=== PATIENT | male | born 1970 | race Caucasian/White ===

== ENCOUNTER 2018-11-27 19:57 | Emergency (ER) | payer OTHER ==
[2018-11-27] MEDS ORDERED: IBUPROFEN 600 MG TABLET PO ONE (20:41)
[2018-11-27] MEDS ORDERED: LIDOCAINE 5% (700 MG) TRANSDERMAL ADH..PATCH TP ONE (20:41)
[2018-11-27] MEDS ORDERED: ACETAMINOPHEN 325 MG TABLET PO ONE (20:41)
--- NOTE | 2018-11-27 21:34 | ER Document Report ---
HPI - HPI Time Seen by Provider: 11/27/18 20:24 Pain Level: 3 Context: Patient is a 48-year-old male who presents emergency department with a chief complaint of right sided back pain. He states that he sneezed earlier today and felt like he pulled a muscle in his side or in his back. States it is a sharp pain. He states that he does not want to sit down, because he states that he will have to get back up, and it hurts for him to go from a sitting to standing position. He states that when he takes a deep breath in, it hurts. He has not taken any ibuprofen or Tylenol to help with his pain. His past medical history includes hypertension, enlarged prostate, and GERD. He states that he thinks his medications are not making him feel any better. - CONSTITUTIONAL Constitutional: DENIES: Fever, Chills - EENT EENT: DENIES: Sore Throat, Ear Pain, Nasal Drainage-Clear - NEURO Neurology: DENIES: Headache - CARDIOVASCULAR Cardiovascular: DENIES: Chest pain - RESPIRATORY Respiratory: DENIES: Coughing Past Medical History - General Information source: Patient - Social History Smoking Status: Never Smoker Family History: Reviewed & Not Pertinent Patient has suicidal ideation: No Patient has homicidal ideation: No - Past Medical History Cardiac Medical History: Denies: Hx Coronary Artery Disease, Hx Heart Attack, Hx Hypertension Pulmonary Medical History: Denies: Hx Asthma, Hx Bronchitis, Hx COPD, Hx Pneumonia Neurological Medical History: Denies: Hx Cerebrovascular Accident, Hx Seizures Renal/ Medical History: Denies: Hx Peritoneal Dialysis Musculoskeletal Medical History: Reports Hx Arthritis - OSTEO - Immunizations Hx Diphtheria, Pertussis, Tetanus Vaccination: Yes Vertical Provider Document - CONSTITUTIONAL Agree With Documented VS: Yes Exam Limitations: No Limitations General Appearance: No Apparent Distress - INFECTION CONTROL TRAVEL OUTSIDE OF THE [place] IN LAST 30 DAYS: No - HEENT HEENT: Atraumatic, Normocephalic - RESPIRATORY Respiratory: Breath Sounds Normal, No Respiratory Distress - CARDIOVASCULAR Cardiovascular: Regular Rate, Regular Rhythm Pulses: Normal: Radial - MUSCULOSKELETAL/EXTREMETIES Musculoskeletal/Extremeties: FROM, Tender - Right mid lateral back - NEURO Level of Consciousness: Awake, Alert, Appropriate Motor/Sensory: No Motor Deficit, No Sensory Deficit - DERM Integumentary: Warm, Dry Course - Re-evaluation Re-evalutation: 11/27/18 22:04 Patient's chest x-ray is negative for any acute fractures. There is no pneumothorax. He states that he feels better after using the ibuprofen and Tylenol. He states he still does have some pain. I suspect the patient has a muscle strain. I also have prescribed him allergy medication. He states that he will use his medication. I will give him a dose of Flexeril and some Flexeril to go home with. Will he is in agreement with this plan. Verbal discharge instructions were given to the patient. They verbalized understanding. They are stable for discharge. - Vital Signs Vital signs: Temp Pulse Resp BP Pulse Ox 98.0 F 87 20 151/98 H 96 11/27/18 20:05 11/27/18 20:05 11/27/18 20:05 11/27/18 20:05 11/27/18 20:05 Discharge - Discharge Clinical Impression: Muscle strain, Costochondritis, acute, Environmental allergies Back pain Qualifiers: Back pain location: back pain in other location Chronicity: acute Qualified Code(s): M54.9 - Dorsalgia, unspecified Condition: Stable Disposition: HOME, SELF-CARE Instructions: Ice Packs ([facility]), Muscle Strain ([facility]), Warm Packs ([facility]) Additional Instructions: You were seen today in the emergency department for pain in your side and back. You strained your muscle when you sneezed. The muscles in between your ribs were strained. You can take Tylenol 1000 mg and ibuprofen 600 mg every 6 hours as needed for your pain. You have been given Flexeril, medication to help relax her muscles. Take as directed. You have been given Flonase and Singulair for your allergies. Please take as prescribed. Please follow-up with your primary care provider in regards to this visit. Stretching Exercises for the Back The physician has recommended that you begin stretching exercises for your back. These are often used even while the back is painful. However, you should notify the physician if the activities seem to increase your pain. PELVIC TILT: Lie flat on your back with knees bent. Tighten your stomach and buttock muscles so it flattens your lower back against the floor. Hold 10 seconds. Repeat 10 times, twice daily. KNEE RAISE: Lying on the back with knees bent, raise one knee to your chest, then the other. Hold both knees against the chest 10 seconds, then lower one knee at a time. Repeat 10 times, twice daily. PARTIAL TRUNK RAISE: Lie face down, arms at your sides. Keeping your waist on the floor, use your arms raise your chest up. Support yourself on your elbows for 30 seconds. Repeat twice daily, increasing the time to two minutes as you recover. Prescriptions: Cyclobenzaprine HCl [Flexeril 10 mg Tablet] 10 mg PO QHS #15 tab Fluticasone Propionate [Flonase Nasal [place] 50 Mcg/[place] 16 gm] 1 sprays NASL Q12 #1 inhaler Montelukast Sodium [Singulair] 10 mg PO DAILY #30 tablet Referrals: BUZZ ROMERO NP [[facility]] - Follow up in 3-5 days
--- NOTE | 2018-11-27 21:44 | RADIOLOGY REPORT (SQ) ---
EXAM DESCRIPTION: XR CHEST 2 VIEWS COMPLETED DATE/TME: 11/27/2018 20:41 CLINICAL HISTORY: 48 years, Male, shortness of breath; rib pain EXAM DESCRIPTION: CLINICAL HISTORY: shortness of breath; rib pain COMPARISON: None. FINDINGS: Two views of the chest are submitted. Cardiac silhouette appears normal. No focal parenchymal or pleural disease. No acute bony abnormality. There is no significant pulmonary vascular engorgement. IMPRESSION: No evidence of acute cardiopulmonary disease.
[2018-11-27] MEDS ORDERED: CYCLOBENZAPRINE HCL 10 MG TABLET PO ONE (21:59)
[2018-11-27 22:13] VITALS: BP 148/97
== END 2018-11-27 22:13 | disposition home or self-care (01) ==
LOC: ER 19:57
DX: T14.8XXA Other injury of unspecified body region, initial encounter (principal); T78.40XA Allergy, unspecified, initial encounter; X58.XXXA Exposure to other specified factors, initial encounter; M54.9 Dorsalgia, unspecified; M94.0 Chondrocostal junction syndrome [Tietze]; R06.7 Sneezing; R07.1 Chest pain on breathing; I10 Essential (primary) hypertension
CPT/HCPCS: 71046; 99283

== ENCOUNTER 2020-05-11 16:35 | Inpatient (IN) | payer OTHER ==
[2020-05-11] MEDS ORDERED: NORMAL SALINE 1000 ML 1,000 ML IV ONE ×2 (17:13→21:15)
--- NOTE | 2020-05-11 17:16 | ER Document Report ---
ED Medical Screen (RME) - General Chief Complaint: Nausea Stated Complaint: NAUSEA,LIGHTHEADED Time Seen by Provider: 05/11/20 17:03 Mode of Arrival: Ambulatory Information source: Patient Notes: Patient presents with her with exposure at home. Patient states he had a cough for the past week and had nausea and low back pain. Patient states today he has felt faint with dizziness. Patient denies any chronic medical problems or surgeries. Patient denies abdominal pain or chest pain. I have greeted and performed a rapid initial assessment of this patient. A comprehensive ED assessment and evaluation of the patient, analysis of test results and completion of the medical decision making process will be conducted by additional ED providers. TRAVEL OUTSIDE OF THE [place] IN LAST 30 DAYS: No - Related Data Allergies/Adverse Reactions: ciprofloxacin [From Cipro] Allergy (Intermediate, Verified 01/15/16 10:56) Generalized rash ciprofloxacin HCl [From Cipro] Allergy (Intermediate, Verified 01/15/16 10:56) Generalized rash Penicillins Allergy (Intermediate, Verified 01/15/16 10:56) Generalized rash Sulfa (Sulfonamide Antibiotics) Allergy (Intermediate, Verified 01/15/16 10:56) Generalized rash Past Medical History - Past Medical History Cardiac Medical History: Denies: Hx Coronary Artery Disease, Hx Heart Attack, Hx Hypertension Pulmonary Medical History: Denies: Hx Asthma, Hx Bronchitis, Hx COPD, Hx Pneumonia Neurological Medical History: Denies: Hx Cerebrovascular Accident, Hx Seizures Renal/ Medical History: Denies: Hx Peritoneal Dialysis Musculoskeltal Medical History: Reports Hx Arthritis - OSTEO - Immunizations Hx Diphtheria, Pertussis, Tetanus Vaccination: Yes Physical Exam - General General appearance: Alert In distress: None - Cardiovascular Rhythm: Regular Heart sounds: S1 appreciated, S2 appreciated - Back Back: Tender - Lower lumbar tenderness
--- NOTE | 2020-05-11 17:59 | EKG REPORT ---
SEVERITY:- NORMAL ECG - SINUS RHYTHM : Confirmed by: Bruno Damian MD 11-May-2020 17:58:51
--- NOTE | 2020-05-11 18:35 | RADIOLOGY REPORT (SQ) ---
EXAM DESCRIPTION: CHEST SINGLE VIEW IMAGES COMPLETED DATE/TIME: 05/11/2020 6:23 pm REASON FOR STUDY: cough, dizzy COMPARISON: 11/27/2018 TECHNIQUE: Single frontal radiographic view of the chest acquired. NUMBER OF VIEWS: One view. LIMITATIONS: None. FINDINGS: LUNGS AND PLEURA: No pneumothorax. Patchy bibasilar consolidation. No significant pleura l effusion. MEDIASTINUM AND HILAR STRUCTURES: Stable. HEART AND VASCULAR STRUCTURES: Stable. BONES: No acute findings. HARDWARE: None in the chest. OTHER: No other significant finding. IMPRESSION: Patchy bibasilar consolidation. TECHNICAL DOCUMENTATION: JOB ID: [id number] [place]-72 2010 [employer]- All Rights Reserved Reading location - IP/workstation name: [employer]
[2020-05-11 18:54] LABS: A TYPE INFLUENZA AG NEGATIVE (NEGATIVE); B INFLUENZA AG NEGATIVE (NEGATIVE)
--- NOTE | 2020-05-11 19:17 | ER Document Report ---
ED Medical Screen (RME) - General Chief Complaint: Nausea Stated Complaint: NAUSEA,LIGHTHEADED Time Seen by Provider: 05/11/20 17:03 Mode of Arrival: Ambulatory TRAVEL OUTSIDE OF THE [place] IN LAST 30 DAYS: No - HPI Onset: Last week Onset/Duration: Gradual Quality of pain: No pain Associated Symptoms: Abdominal pain, Fever, Nausea Exacerbated by: Denies Relieved by: Denies Notes: 05/11/20 19:12 Patient is a 50-year-old male with a past medical history of hypertension who presents with fever and ill symptoms. Patient's father was just diagnosed with COVID-19. He states that he has lightheadedness. Denies any chest pain or shortness of breath. He states that he had a fever yesterday. He has abdominal cramping. He also has nausea but no vomiting. No diarrhea. Positive for cough but no shortness of breath. No chest pain. He reports loss of taste and appetite and body aches. 05/11/20 20:57 - Related Data Allergies/Adverse Reactions: ciprofloxacin [From Cipro] Allergy (Intermediate, Verified 05/11/20 19:23) Generalized rash ciprofloxacin HCl [From Cipro] Allergy (Intermediate, Verified 05/11/20 19:23) Generalized rash Penicillins Allergy (Intermediate, Verified 05/11/20 19:23) Generalized rash Sulfa (Sulfonamide Antibiotics) Allergy (Intermediate, Verified 05/11/20 19:23) Generalized rash Past Medical History - General Information source: Patient - Social History Family history: Reviewed & Not Pertinent - Past Medical History Cardiac Medical History: Denies: Hx Coronary Artery Disease, Hx Heart Attack, Hx Hypertension Pulmonary Medical History: Denies: Hx Asthma, Hx Bronchitis, Hx COPD, Hx Pneumonia Neurological Medical History: Denies: Hx Cerebrovascular Accident, Hx Seizures Renal/ Medical History: Denies: Hx Peritoneal Dialysis Musculoskeltal Medical History: Reports Hx Arthritis - OSTEO - Immunizations Hx Diphtheria, Pertussis, Tetanus Vaccination: Yes Review of Systems - Review of Systems Notes: CONSTITUTIONAL: Positive for fever and fatigue. SKIN: No rash. HENT: No congestion, ear pain, or sore throat. EYES: No recent vision problems or eye pain. ENDOCRINE: No polyuria or polydipsia. CARDIOVASCULAR: No chest pain or edema. RESPIRATORY: No cough, shortness of breath, congestion, or wheezing. GASTROINTESTINAL: Positive for abdominal pain, nausea. No vomiting, bloody stools or diarrhea. GENITOURINARY: No dysuria. MUSCULOSKELETAL: No joint pain or swelling. LYMPHATIC: No swollen glands. NEUROLOGIC: No seizures. No headache, focal weakness or sensory changes. HEMATOLOGIC: No unusual bruising or bleeding. PSYCHIATRIC: No depression or anxiety. Physical Exam - Vital signs Vitals: Temp Pulse Resp BP Pulse Ox 99.1 F 77 20 116/98 H 91 L 05/11/20 17:11 05/11/20 17:11 05/11/20 17:11 05/11/20 17:11 05/11/20 17:11 - Notes Notes: VITAL SIGNS: Within normal limits. GENERAL: No acute distress, non-toxic appearance. HEAD: Normal with no signs of head trauma. EYES: EOMI, conjunctiva normal, no discharge. EARS: Hearing grossly intact. NOSE: Normal. NECK: Normal range of motion, no tenderness, supple, no lymphadenopathy, No adenopathy, no JVD. CHEST: Clear breath sounds bilaterally. No wheezes, rales, or rhonchi. CARDIAC: Regular rate and rhythm. S1 and S2, without murmurs, gallops, or rubs. VASCULAR: No Edema. ABDOMEN: Normal and soft with no tenderness, no masses or pulsatile masses. GENITOURINARY: Normal, No tenderness LYMPATHTIC: No lymphadenopathy noted. MUSCULOSKELETAL: Good range of motion of all major joints. Extremities without clubbing, cyanosis or edema. NEUROLOGICAL: Alert and oriented x 3. No focal sensory or strength deficits. Speech normal. Follows commands appropriately. PSYCHIATRIC: Normal Affect, judgement and mood. SKIN: Normal appearance with no rashes or lesions. Course - Re-evaluation Re-evalutation: 05/11/20 20:31 Patient has bilateral patchy consolidation. I am concerned for COVID-19 as his father was recently diagnosed with this symptoms. Patient also has a mildly bumped troponin at 0.018. He is denying any chest pain. His EKG is normal. He was given fluids and Decadron. I ordered a second troponin for 3 hours later. Patient ambulated in the ER on room air and remained around 97%. He will be signed out to my colleague at the end of my shift. - Vital Signs Vital signs: Temp Pulse Resp BP Pulse Ox 99.1 F 77 17 116/98 H 98 10/02/20 17:11 05/11/20 17:11 05/11/20 20:06 05/11/20 17:11 05/11/20 20:06 - Laboratory Result Diagrams: 05/11/20 19:00 05/11/20 19:00 Laboratory results interpreted by me: 05/11/20 05/11/20 19:00 19:00 Plt Count 141 L Lymph % (Auto) 12.8 L Seg Neutrophils % 79.5 H Sodium 132.1 L Chloride 95 L Creatinine 1.34 H Est GFR (MDRD) Non-Af 56 L Glucose 129 H Calcium 8.0 L - Diagnostic Test Radiology reviewed: Image reviewed, Reports reviewed - EKG Interpretation by Me Additional EKG results interpreted by me: 05/11/20 20:58 Sinus rhythm at a rate of 71. QTc 413. No acute ST changes. No previous EKG immediately available for comparison. Doctor's Discharge - Discharge Clinical Impression: Cough Instructions: COVID-19 Guidance for Persons Under Investigation
[2020-05-11 19:34] LABS: ABSOLUTE LYMPHOCYTES (AUTO) 0.6 10^3/uL (0.5-4.7); ABSOLUTE MONOCYTES (AUTO) 0.3 10^3/uL (0.1-1.4); ABSOLUTE NEUT (AUTO) 3.5 10^3/uL (1.7-8.2); BASOPHILS % (AUTO) 0.4 % (0-2); HEMATOCRIT 40.9 % (37.9-51.0); HEMOGLOBIN 14.6 g/dL (13.5-17.0); LYMPHOCYTES % (AUTO) 12.8 % (13-45); MEAN CORPUSCULAR HEMOGLOBIN 30.7 pg (27.0-33.4); MEAN CORPUSCULAR HGB CONC 35.7 g/dL (32.0-36.0); MEAN CORPUSCULAR VOLUME 86 fl (80-97); MONOCYTES % (AUTO) 7.3 % (3-13); PLATELET COUNT 141 10^3/uL (150-450); RED BLOOD COUNT 4.77 10^6/uL (4.35-5.55); RED CELL DISTRIBUTION WIDTH 13.4 % (11.5-14.0); SEGMENTED NEUTROPHILS % (AUTO) 79.5 % (42-78); TOTAL CELLS COUNTED % (AUTO) 100 %; WHITE BLOOD COUNT 4.4 10^3/uL (4.0-10.5)
[2020-05-11] MEDS ORDERED: DEXAMETHASONE SOD PHOS INJ 10 MG/1 ML VIAL IV ONE (19:51)
[2020-05-11 19:52] LABS: ALBUMIN 3.8 g/dL (3.5-5.0); ALKALINE PHOSPHATASE 50 U/L (38-126); ANION GAP 8 (5-19); ASPARTATE AMINO TRANSFERASE 34 U/L (17-59); BILIRUBIN,DIRECT 0.4 mg/dL (0.0-0.4); BILIRUBIN,TOTAL 0.6 mg/dL (0.2-1.3); BLOOD UREA NITROGEN 19 mg/dL (7-20); CARBON DIOXIDE 29 mmol/L (22-30); CHLORIDE 95 mmol/L (98-107); GLUCOSE 129 mg/dL (75-110); NEONATAL BILIRUBIN RESULT 0.2 mg/dL (0.1-1.1); POTASSIUM 4.1 mmol/L (3.6-5.0); TOTAL PROTEIN 6.5 g/dL (6.3-8.2)
[2020-05-11 20:54] LABS: C-REACTIVE PROTEIN 61.8 mg/L (<10.0)
[2020-05-11 21:15] LABS: APPEARANCE,URINE SLIGHTLY-CLOUDY; BILIRUBIN,URINE NEGATIVE (NEGATIVE); COLOR,URINE YELLOW; GLUCOSE, URINE NEGATIVE (NEGATIVE); KETONES,URINE NEGATIVE (NEGATIVE); LEUKOCYTE ESTERASE,URINE NEGATIVE (NEGATIVE); NITRITE,URINE NEGATIVE (NEGATIVE); PROTEIN,URINE 30 mg/dL (NEGATIVE); URINE SPECIFIC GRAVITY 1.024; UROBILINOGEN,URINE NEGATIVE mg/dL (<2.0)
[2020-05-11] MEDS ORDERED: AZITHROMYCIN INJ 500 MG VIAL IV ONE (23:45)
[2020-05-11] MEDS ORDERED: CEFTRIAXONE 1 GM/D5W RTU 1 GM/50 ML RTUPB IV ONE (23:59)
[2020-05-12] MEDS ORDERED: LEVALBUTEROL HCL NEB 0.63 MG/3 ML AMPUL NEB PRN (00:18)
[2020-05-12] MEDS ORDERED: GUAIFENESIN SYRP 200 MG/10 ML UDC PO PRN (00:18)
[2020-05-12] MEDS ORDERED: HYDRALAZINE HCL INJ/PF 20 MG/1 ML SDV IV PRN (00:22)
[2020-05-12] MEDS ORDERED: MAG HYDROX/AL HYDROX/SIMETH SUSP 30 ML UDCUP PO PRN (00:22)
[2020-05-12] MEDS ORDERED: MORPHINE SULFATE 10 MG/ML INJ IV PRN ×4 (00:22→00:34)
[2020-05-12] MEDS ORDERED: LORAZEPAM INJ 2 MG/1 ML VIAL IV PRN (00:22)
[2020-05-12] MEDS ORDERED: MAGNESIUM HYDROXIDE SUSP 30 ML UDCUP PO PRN (00:22)
[2020-05-12] MEDS ORDERED: METOPROLOL TARTRATE PF/INJ 5 MG/5 ML SDV IV PRN (00:22)
[2020-05-12] MEDS ORDERED: CEFTRIAXONE 1 GM/D5W RTU 1 GM/50 ML RTUPB IV ONE (01:00)
[2020-05-12] MEDS ORDERED: AZITHROMYCIN 500 MG in DEXTROSE 5%-WATER 250 ML IV ONE (01:00)
[2020-05-12] MEDS: HEPARIN SOD (PORCINE) 5,000 UNIT/ML 1 ML VIAL SUBCUT SCH ×3 (05:44→21:10)
--- NOTE | 2020-05-12 06:37 | PDOC H&P ---
History of Present Illness Admission Date/PCP: 05/11/2020 23:57 TYSON GUZMAN JR, MD Patient complains of: Lightheadedness History of Present Illness: TANYA MONCADA is a 50 year old male who presented to the emergency room with a 1 day history of lightheadedness. He admits gradually developing episodes of lightheadedness accompanied by nausea and occasional abdominal cramps. His lightheadedness is been associated with a subjective fever, malaise, ague and dysgeusia. He denies other associated or accompanying signs and symptoms. His lightheadedness and other symptoms have gradually worsened over the course of the last day. He admits that his father tested positive for COVID-19. He denies prior similar episodes. He has not identified any additional aggravating or ameliorating factors for his lightheadedness. In the emergency room he was found to have bibasilar infiltrates on his chest x-ray and developed hypoxia requiring supplemental oxygen over the course of his emergency room visit. He was tested for COVID-19. He received IV Rocephin and a azithromycin. He rec eived IV Decadron. He received IV fluids in bolus doses x2 L. He was subsequently admitted to the medical floor for further evaluation and treatment. Past Medical History Cardiac Medical History: Reports: Hypertension Denies: Atrial Fibrillation, Coronary Artery Disease, DVT, Myocardial Infarction, Hyperlipidema, Peripheral Vascular Disease, Pulmonary Embolism Pulmonary Medical History: Denies: Asthma, Bronchitis, Chronic Obstructive Pulmonary Disease (COPD), Pneumonia EENT Medical History: Denies: Cataracts, Ears - Hearing aids Neurological Medical History: Denies: Hemorrhagic CVA, Ischemic CVA, Seizures Endocrine Medical History: Reports: Obesity Denies: Diabetes Mellitus Type 1, Diabetes Mellitus Type 2, Hyperthyroidism, Hypothyroidism Malignancy Medical History: Reports: None GI Medical History: Reports: Other - Colon polyps Denies: Cirrhosis, Hepatitis, Peptic Ulcer Disease Musculoskeltal Medical History: Reports: Arthritis - OSTEO Denies: Fibromyalgia, Gout Skin Medical History: Denies: Eczema, Psoriasis Psychiatric Medical History: Denies: Alcohol Dependency, Substance Abuse, Tobacco Dependency Traumatic Medical History: Reports: None Hematology: Denies: Anemia, Bleeding Tendencies Infectious Medical History: Reports: None Past Surgical History Past Surgical History: Reports: Other - Colonoscopy with polypectomy Social History Information Source: Patient Lives with: Spouse/Significant other Smoking Status: Never Smoker Electronic Cigarette use?: No Frequency of Alcohol Use: None Hx Recreational Drug Use: No Drugs: None Hx Prescription Drug Abuse: No - Advance Directive Resuscitation Status: Full Code Surrogate healthcare decision maker:: Pilar Moncada Family History Family History: Hypertension. denies: CAD, DM, Malignancy Parental Family History Reviewed: Yes Children Family History Reviewed: No Sibling(s) Family History Reviewed.: Yes Medication/Allergy Home Medications: Alfuzosin HCl [Uroxatral] 10 mg PO DAILY 01/16/16 Cyclobenzaprine HCl [Flexeril 10 mg Tablet] 10 mg PO QHS #15 tab 11/27/18 Fluticasone Propionate [Flonase Nasal [place] 50 Mcg/[place] 16 gm] 1 sprays NASL Q12 #1 inhaler 11/27/18 Montelukast Sodium [Singulair] 10 mg PO DAILY #30 tablet 11/27/18 Allergies/Adverse Reactions: ciprofloxacin [From Cipro] Allergy (Intermediate, Verified 05/11/20 19:23) Generalized rash ciprofloxacin HCl [From Cipro] Allergy (Intermediate, Verified 05/11/20 19:23) Generalized rash Penicillins Allergy (Intermediate, Verified 05/11/20 19:23) Generalized rash Sulfa (Sulfonamide Antibiotics) Allergy (Intermediate, Verified 05/11/20 19:23) Generalized rash Review of Systems Constitutional: PRESENT: as per HPI, fever(s). ABSENT: chills Eyes: ABSENT: visual disturbances, other - Eye pain Ears: ABSENT: hearing changes, other - Ear pain Nose, Mouth, and Throat: PRESENT: as per HPI, other - Dysgeusia. ABSENT: headache(s), sore throat Cardiovascular: PRESENT: other - Lightheadedness. ABSENT: chest pain, palpitations Respiratory: PRESENT: cough - Chronic, dyspnea - Chronic. ABSENT: sputum Gastrointestinal: PRESENT: as per HPI, abdominal pain, nausea. ABSENT: constipation, diarrhea, vomiting Genitourinary: ABSENT: dysuria, hematuria Musculoskeletal: PRESENT: as per HPI, back pain, other - Ague Integumentary: ABSENT: pruritus, rash Neurological: ABSENT: confusion, convulsions, focal weakness, memory loss, syncope Psychiatric: ABSENT: anxiety, depression Endocrine: ABSENT: cold intolerance, heat intolerance Hematologic/Lymphatic: ABSENT: easy bleeding, easy bruising Allergic/Immunologic: ABSENT: seasonal rhinorrhea Physical Exam Vital Signs: Temp Pulse Resp BP Pulse Ox 99.9 F 77 34 H 139/84 H 94 05/11/20 23:24 05/11/20 17:11 05/11/20 23:24 05/11/20 23:24 05/11/20 23:24 Intake & Output 05/09/20 05/10/20 05/11/20 23:59 23:59 23:59 Intake Total 1999 Balance 1999 Weight 115 kg General appearance: PRESENT: no acute distress, cooperative, obese Head exam: PRESENT: atraumatic, normocephalic Eye exam: PRESENT: conjunctiva pink. ABSENT: conjunctival injection, scleral icterus Ear exam: PRESENT: normal external ear exam. ABSENT: bleeding, drainage Mouth exam: PRESENT: dry mucosa, neck supple Neck exam: ABSENT: thyromegaly, tracheal deviation Respiratory exam: PRESENT: clear to auscultation too, symmetrical, tachypnea Cardiovascular exam: PRESENT: RRR. ABSENT: clicks, gallop, rubs Pulses: PRESENT: normal radial pulses, normal dorsalis pedis pul Vascular exam: PRESENT: normal capillary refill. ABSENT: pallor GI/Abdominal exam: PRESENT: normal bowel sounds, soft. ABSENT: tenderness Rectal exam: PRESENT: deferred Extremities exam: ABSENT: joint swelling, pedal edema Musculoskeletal exam: ABSENT: deformity, dislocation Neurological exam: PRESENT: alert, oriented to person, oriented to place, oriented to time, oriented to situation, CN II-XII grossly intact. ABSENT: motor sensory deficit Psychiatric exam: PRESENT: appropriate affect, normal mood Skin exam: PRESENT: dry, intact, warm. ABSENT: jaundice, rash, urticaria Results Laboratory Results: 05/11/20 19:00 05/11/20 19:00 05/11/20 05/11/20 05/11/20 19:00 19:00 20:05 WBC 4.4 RBC 4.77 Hgb 14.6 Hct 40.9 MCV 86 MCH 30.7 MCHC 35.7 RDW 13.4 Plt Count 141 L Seg Neutrophils % 79.5 H Sodium 132.1 L Potassium 4.1 Chloride 95 L Carbon Dioxide 29 Anion Gap 8 BUN 19 Creatinine 1.34 H Est GFR ( Amer) > 60 Glucose 129 H Lactic Acid Calcium 8.0 L Magnesium 2.1 Ferritin Total Bilirubin 0.6 AST 34 Alkaline Phosphatase 50 C-Reactive Protein Total Protein 6.5 Albumin 3.8 Urine Color YELLOW Urine Appearance SLIGHTLY-CLOUDY Urine pH 5.0 Ur Specific [place] 1.024 Urine Protein 30 H Urine Glucose (UA) NEGATIVE Urine Ketones NEGATIVE Urine Blood NEGATIVE Urine Nitrite NEGATIVE Ur Leukocyte Esterase NEGATIVE Urine WBC (Auto) 5 Urine RBC (Auto) 3 05/11/20 05/11/20 20:15 20:15 WBC RBC Hgb Hct MCV MCH MCHC RDW Plt Count Seg Neutrophils % Sodium Potassium Chloride Carbon Dioxide Anion Gap BUN Creatinine Est GFR ( Amer) Glucose Lactic Acid 0.9 Calcium Magnesium Ferritin 282.00 Total Bilirubin AST Alkaline Phosphatase C-Reactive Protein 61.8 H Total Protein Albumin Urine Color Urine Appearance Urine pH Ur Specific [place] Urine Protein Urine Glucose (UA) Urine Ketones Urine Blood Urine Nitrite Ur Leukocyte Esterase Urine WBC (Auto) Urine RBC (Auto) 05/11/20 05/11/20 05/11/20 19:00 20:15 22:00 Creatine Kinase 357 H Troponin I 0.018 0.022 Impressions: Chest X-Ray 05/11/20 17:13 IMPRESSION: Patchy bibasilar consolidation. Assessment and Plan - Diagnosis (1) Community acquired bilateral lower lobe pneumonia Is this a current diagnosis for this admission?: Yes (2) Person under investigation for COVID-19 Is this a current diagnosis for this admission?: Yes (3) Hypertension Qualifiers: Hypertension type: essential hypertension Qualified Code(s): I10 - Essent ial (primary) hypertension Is this a current diagnosis for this admission?: Yes (4) Obesity (BMI 30-39.9) Is this a current diagnosis for this admission?: Yes - Plan Summary Summary: Patient will be admitted to the medical floor he will receive routine supportive and symptomatic cares. He will be treated with Rocephin 1 g IV daily and a azithromycin 500 mg IV daily. He will receive Decadron 2 mg IV every 8 hours. He will receive supplemental oxygen via nasal cannula and/or noninvasive airway pressure support devices as required to maintain an adequate oxygen saturation. CBCs and additional laboratory and/or radiographic evaluations will be obtained as needed. Patient will be continued on his home antihypertensive regiment, if appropriate, when his medication list has been verified and reconciled. He will be treated with a cardiac diet. He will use Ativan 1 mg IV every 4 hours as needed for anxiety or restlessness. He will use morphine sulfate 2 to 4 mg IV every 2 hours as needed for pain. - Time Time Spent with patient: Less than 15 minutes Medications reviewed and adjusted accordingly: Yes Anticipated Discharge Disposition: Home, Self Care Anticipated Discharge Timeframe: Undetermined - Inpatient Certification Based on my medical assessment, after consideration of the patient's comorbidities, presenting symptoms, or acuity I expect that the services needed warrant INPATIENT care.: Yes I certify that my determination is in accordance with my understanding of Medicare's requirements for reasonable and necessary INPATIENT services [42 CFR 412.3e].: Yes Medical Necessity: Significant Comorbidiites Make Outpatient Treatment Too Risky, Need Close Monitoring Due to Risk of Patient Decompensation, Need for IV Antibiotics, Risk of Complication if Not Cared For in Hospital
[2020-05-12] MEDS: FAMOTIDINE 20 MG TABLET PO SCH ×2 (09:11→21:10)
--- NOTE | 2020-05-12 14:07 | PDOC PROGRESS REPORT ---
Subjective Progress Note for:: 05/12/20 Subjective:: No adverse events overnight. No new complaints. Currently on 2 L nasal cannula with oxygen saturations in the upper 90s. He said his breathing feels comfortable. No fevers. Reason For Visit: COMMUNITY ACQUIRED BILATERAL PNEUMONIA,PERSON Physical Exam Vital Signs: Temp Pulse Resp BP Pulse Ox 98.3 F 84 20 120/61 97 05/12/20 09:00 05/12/20 10:00 05/12/20 09:00 05/12/20 09:00 05/12/20 09:00 Intake & Output 05/11/20 05/12/20 05/13/20 06:59 06:59 06:59 Intake Total 2500 420 Balance 2500 420 Weight 122.4 kg General appearance: PRESENT: no acute distress, cooperative, morbidly obese Respiratory exam: PRESENT: clear to auscultation too, symmetrical, unlabored. ABSENT: accessory muscle use, chest wall tenderness, crackles, prolonged expiratory phas, retraction, tachypnea, wheezes Cardiovascular exam: PRESENT: RRR, +S1, +S2 Pulses: PRESENT: normal carotid pulses Vascular exam: PRESENT: normal capillary refill GI/Abdominal exam: PRESENT: normal bowel sounds, soft. ABSENT: distended, guarding, rebound, tenderness Extremities exam: ABSENT: clubbing, pedal edema Musculoskeletal exam: PRESENT: normal inspection. ABSENT: deformity Neurological exam: PRESENT: alert, awake, oriented to person, oriented to place, oriented to situation Psychiatric exam: PRESENT: appropriate affect, normal mood Skin exam: PRESENT: dry, warm Results Laboratory Results: 05/11/20 19:00 05/11/20 19:00 05/11/20 05/11/20 05/11/20 19:00 19:00 20:05 WBC 4.4 RBC 4.77 Hgb 14.6 Hct 40.9 MCV 86 MCH 30.7 MCHC 35.7 RDW 13.4 Plt Count 141 L Seg Neutrophils % 79.5 H Sodium 132.1 L Potassium 4.1 Chloride 95 L Carbon Dioxide 29 Anion Gap 8 BUN 19 Creatinine 1.34 H Est GFR ( Amer) > 60 Glucose 129 H Lactic Acid Calcium 8.0 L Magnesium 2.1 Ferritin Total Bilirubin 0.6 AST 34 Alkaline Phosphatase 50 C-Reactive Protein Total Protein 6.5 Albumin 3.8 Urine Color YELLOW Urine Appearance SLIGHTLY-CLOUDY Urine pH 5.0 Ur Specific [place] 1.024 Urine Protein 30 H Urine Glucose (UA) NEGATIVE Urine Ketones NEGATIVE Urine Blood NEGATIVE Urine Nitrite NEGATIVE Ur Leukocyte Esterase NEGATIVE Urine WBC (Auto) 5 Urine RBC (Auto) 3 05/11/20 05/11/20 20:15 20:15 WBC RBC Hgb Hct MCV MCH MCHC RDW Plt Count Seg Neutrophils % Sodium Potassium Chloride Carbon Dioxide Anion Gap BUN Creatinine Est GFR ( Amer) Glucose Lactic Acid 0.9 Calcium Magnesium Ferritin 282.00 Total Bilirubin AST Alkaline Phosphatase C-Reactive Protein 61.8 H Total Protein Albumin Urine Color Urine Appearance Urine pH Ur Specific [place] Urine Protein Urine Glucose (UA) Urine Ketones Urine Blood Urine Nitrite Ur Leukocyte Esterase Urine WBC (Auto) Urine RBC (Auto) 05/11/20 05/11/20 05/11/20 19:00 20:15 22:00 Creatine Kinase 357 H Troponin I 0.018 0.022 05/12/20 06:35 Creatine Kinase Troponin I < 0.012 Impressions: Chest X-Ray 05/11/20 17:13 IMPRESSION: Patchy bibasilar consolidation. Assessment and Plan - Diagnosis (1) Community acquired bilateral lower lobe pneumonia Is this a current diagnosis for this admission?: Yes Plan: Continue Rocephin and azithromycin (2) Obesity (BMI 30-39.9) Is this a current diagnosis for this admission?: Yes Plan: Strongly encourage lifestyle modification (3) Person under investigation for COVID-19 Is this a current diagnosis for this admission?: Yes Plan: This test results are pending. He is on 2 L of oxygen but I have not started Decadron because he looks very comfortable right now on 2 L and his saturations are in the upper 90s. We will monitor him closely for any worsening hypoxemia. - Plan Summary Summary: Patient will be admitted to the medical floor he will receive routine supportive and symptomatic cares. He will be treated with Rocephin 1 g IV daily and a azithromycin 500 mg IV daily. He will receive Decadron 2 mg IV every 8 hours. He will receive supplemental oxygen via nasal cannula and/or noninvasive airway pressure support devices as required to maintain an adequate oxygen saturation. CBCs and additional laboratory and/or radiographic evaluations will be obtained as needed. Patient will be continued on his home antihypertensive regiment, if appropriate, when his medication list has been verified and reconciled. He will be treated with a cardiac diet. He will use Ativan 1 mg IV every 4 hours as needed for anxiety or restlessness. He will use morphine sulfate 2 to 4 mg IV every 2 hours as needed for pain. - Time Time Spent with patient: 15-24 minutes Anticipated Discharge Disposition: Home, Self Care Anticipated Discharge Timeframe: within 72 hours
[2020-05-12] MEDS: ACETAMINOPHEN 325 MG TABLET PO PRN ×2 (15:31→21:11)
[2020-05-12] MEDS: AZITHROMYCIN 500 MG in DEXTROSE 5%-WATER 250 ML IV SCH (21:11)
[2020-05-12] MEDS: CEFTRIAXONE 1 GM/D5W RTU 1 GM/50 ML RTUPB IV SCH (23:11)
[2020-05-13 06:08] LABS: HEMATOCRIT 41.1 % (37.9-51.0); HEMOGLOBIN 14.8 g/dL (13.5-17.0); MEAN CORPUSCULAR HEMOGLOBIN 30.9 pg (27.0-33.4); MEAN CORPUSCULAR VOLUME 86 fl (80-97); PLATELET COUNT 122 10^3/uL (150-450); RED BLOOD COUNT 4.79 10^6/uL (4.35-5.55); RED CELL DISTRIBUTION WIDTH 13.8 % (11.5-14.0); WHITE BLOOD COUNT 4.4 10^3/uL (4.0-10.5)
[2020-05-13] MEDS: HEPARIN SOD (PORCINE) 5,000 UNIT/ML 1 ML VIAL SUBCUT SCH ×3 (06:10→21:24)
[2020-05-13 06:30] LABS: ALBUMIN 3.6 g/dL (3.5-5.0); ALKALINE PHOSPHATASE 48 U/L (38-126); ANION GAP 8 (5-19); ASPARTATE AMINO TRANSFERASE 47 U/L (17-59); BILIRUBIN,DIRECT 0.4 mg/dL (0.0-0.4); BILIRUBIN,TOTAL 0.5 mg/dL (0.2-1.3); BLOOD UREA NITROGEN 16 mg/dL (7-20); CALCIUM 8.1 mg/dL (8.4-10.2); CARBON DIOXIDE 23 mmol/L (22-30); CHLORIDE 101 mmol/L (98-107); GLUCOSE 108 mg/dL (75-110); POTASSIUM 4.2 mmol/L (3.6-5.0); TOTAL PROTEIN 6.4 g/dL (6.3-8.2)
[2020-05-13] MEDS ORDERED: INFLUENZA QUAD (6MOS+) 2020-21 VAC 0.5 ML SYR IM ONE (08:00)
[2020-05-13] MEDS: ACETAMINOPHEN 325 MG TABLET PO PRN (08:05)
[2020-05-13] MEDS: FAMOTIDINE 20 MG TABLET PO SCH ×2 (09:20→21:23)
[2020-05-13] MEDS: DEXAMETHASONE SOD PHOSPHATE INJ 4 MG/1 ML VIAL IV SCH (10:43)
[2020-05-13] MEDS ORDERED: REMDESIVIR (EUA) 200 MG in NORMAL SALINE 250 ML IV ONE (13:00)
--- NOTE | 2020-05-13 14:07 | PDOC PROGRESS REPORT ---
Subjective Progress Note for:: 05/13/20 Subjective:: No adverse events overnight. He turned febrile for the first time yesterday evening. His pulse oximetry has been stable on 2 L per nasal cannula. He was given some Tylenol that helped his temperature come down and he felt better. His test results for coronavirus came back positive today. Reason For Visit: COMMUNITY ACQUIRED BILATERAL PNEUMONIA,PERSON Physical Exam Vital Signs: Temp Pulse Resp BP Pulse Ox 99.2 F 80 24 H 122/83 92 05/13/20 12:00 05/13/20 12:00 05/13/20 12:00 05/13/20 12:00 05/13/20 12:00 Intake & Output 05/12/20 05/13/20 05/14/20 06:59 06:59 06:59 Intake Total 2500 2020 Balance 2500 2020 Weight 122.4 kg 120.9 kg General appearance: PRESENT: no acute distress, cooperative, morbidly obese Respiratory exam: PRESENT: clear to auscultation too, symmetrical, unlabored. ABSENT: accessory muscle use, chest wall tenderness, crackles, prolonged expiratory phas, retraction, tachypnea, wheezes Cardiovascular exam: PRESENT: RRR, +S1, +S2 Pulses: PRESENT: normal carotid pulses Vascular exam: PRESENT: normal capillary refill GI/Abdominal exam: PRESENT: normal bowel sounds, soft. ABSENT: distended, guarding, rebound, tenderness Extremities exam: ABSENT: clubbing, pedal edema Musculoskeletal exam: PRESENT: normal inspection. ABSENT: deformity Neurological exam: PRESENT: alert, awake, oriented to person, oriented to place, oriented to situation Psychiatric exam: PRESENT: appropriate affect, normal mood Skin exam: PRESENT: dry, warm Results Laboratory Results: 05/13/20 05:30 05/13/20 05:30 05/13/20 05/13/20 05:30 05:30 WBC 4.4 RBC 4.79 Hgb 14.8 Hct 41.1 MCV 86 MCH 30.9 MCHC 36.0 RDW 13.8 Plt Count 122 L Sodium 132.2 L Potassium 4.2 Chloride 101 Carbon Dioxide 23 Anion Gap 8 BUN 16 Creatinine 1.04 Est GFR ( Amer) > 60 Glucose 108 Calcium 8.1 L Total Bilirubin 0.5 AST 47 Alkaline Phosphatase 48 Total Protein 6.4 Albumin 3.6 05/11/20 05/11/20 05/11/20 19:00 20:15 22:00 Creatine Kinase 357 H Troponin I 0.018 0.022 05/12/20 06:35 Creatine Kinase Troponin I < 0.012 Impressions: Chest X-Ray 05/11/20 17:13 IMPRESSION: Patchy bibasilar consolidation. Assessment and Plan - Diagnosis (1) Community acquired bilateral lower lobe pneumonia Is this a current diagnosis for this admission?: Yes Plan: Currently on empiric antibiotics for superimposed infection. We will continue today but will likely discontinue in light of his positive coronavirus test. (2) Obesity (BMI 30-39.9) Is this a current diagnosis for this admission?: Yes Plan: Strongly encourage lifestyle modification (3) COVID-19 Is this a current diagnosis for this admission?: Yes Plan: He is maintaining his oxygen saturation easily on 2 L. He has not had an increase in his oxygen requirement. Remdesivir and Decadron were started today. - Plan Summary Summary: Patient will be admitted to the medical floor he will receive routine supportive and symptomatic cares. He will be treated with Rocephin 1 g IV daily and a azithromycin 500 mg IV daily. He will receive Decadron 2 mg IV every 8 hours. He will receive supplemental oxygen via nasal cannula and/or noninvasive airway pressure support devices as required to maintain an adequate oxygen saturation. CBCs and additional laboratory and/or radiographic evaluations will be obtained as needed. Patient will be continued on his home antihypertensive regiment, if appropriate, when his medication list has been verified and reconciled. He will be treated with a cardiac diet. He will use Ativan 1 mg IV every 4 hours as needed for anxiety or restlessness. He will use morphine sulfate 2 to 4 mg IV every 2 hours as needed for pain. - Time Time Spent with patient: 15-24 minutes Anticipated Discharge Disposition: Home, Self Care Anticipated Discharge Timeframe: Pending clinical course
[2020-05-13] MEDS: CEFTRIAXONE 1 GM/D5W RTU 1 GM/50 ML RTUPB IV SCH (21:22)
[2020-05-13] MEDS: AZITHROMYCIN 500 MG in DEXTROSE 5%-WATER 250 ML IV SCH (22:41)
[2020-05-14] MEDS: ACETAMINOPHEN 325 MG TABLET PO PRN ×2 (04:03→12:38)
[2020-05-14] MEDS: HEPARIN SOD (PORCINE) 5,000 UNIT/ML 1 ML VIAL SUBCUT SCH ×3 (05:07→21:50)
[2020-05-14] MEDS: FAMOTIDINE 20 MG TABLET PO SCH ×2 (09:48→21:30)
[2020-05-14] MEDS: DEXAMETHASONE SOD PHOSPHATE INJ 4 MG/1 ML VIAL IV SCH (09:48)
[2020-05-14] MEDS: REMDESIVIR (EUA) 100 MG in NORMAL SALINE 250 ML IV SCH (09:49)
--- NOTE | 2020-05-14 15:29 | PDOC PROGRESS REPORT ---
Subjective Progress Note for:: 05/14/20 Subjective:: No adverse events overnight. No new complaints. He still oxygenating fairly well. Currently on 3 L per nasal cannula. He was able to rest fairly comfortably this morning. Fever curve has improved. Reason For Visit: COMMUNITY ACQUIRED BILATERAL PNEUMONIA,PERSON Physical Exam Vital Signs: Temp Pulse Resp BP Pulse Ox 98 F 83 28 H 116/74 90 L 05/14/20 13:38 05/14/20 12:20 05/14/20 12:20 05/14/20 12:20 05/14/20 12:20 Intake & Output 05/13/20 05/14/20 05/15/20 06:59 06:59 06:59 Intake Total 20190 1133 Balance 2019 2229 1133 Weight 120.9 kg 119.9 kg General appearance: PRESENT: no acute distress, cooperative, morbidly obese Respiratory exam: PRESENT: clear to auscultation too, symmetrical, tachypnea, unlabored. ABSENT: accessory muscle use, chest wall tenderness, crackles, prolonged expiratory phas, retraction, wheezes Cardiovascular exam: PRESENT: RRR, +S1, +S2 Pulses: PRESENT: normal carotid pulses Vascular exam: PRESENT: normal capillary refill GI/Abdominal exam: PRESENT: normal bowel sounds, soft. ABSENT: distended, guarding, rebound, tenderness Extremities exam: ABSENT: clubbing, pedal edema Musculoskeletal exam: PRESENT: normal inspection. ABSENT: deformity Neurological exam: PRESENT: alert, awake, oriented to person, oriented to place, oriented to situation Psychiatric exam: PRESENT: appropriate affect, normal mood Skin exam: PRESENT: dry, warm Results Laboratory Results: 05/13/20 05:30 05/13/20 05:30 05/11/20 05/11/20 05/11/20 19:00 20:15 22:00 Creatine Kinase 357 H Troponin I 0.018 0.022 05/12/20 06:35 Creatine Kinase Troponin I < 0.012 Impressions: Chest X-Ray 05/11/20 17:13 IMPRESSION: Patchy bibasilar consolidation. Assessment and Plan - Diagnosis (1) COVID-19 Is this a current diagnosis for this admission?: Yes Plan: Continue supplemental O2, Decadron, and remdesivir (2) Community acquired bilateral lower lobe pneumonia Is this a current diagnosis for this admission?: Yes Plan: Currently on empiric antibiotics for superimposed infection. We will continue today but will likely discontinue in light of his positive coronavirus test. (3) Obesity (BMI 30-39.9) Is this a current diagnosis for this admission?: Yes Plan: Strongly encourage lifestyle modification - Plan Summary Summary: Patient will be admitted to the medical floor he will receive routine supportive and symptomatic cares. He will be treated with Rocephin 1 g IV daily and a azithromycin 500 mg IV daily. He will receive Decadron 2 mg IV every 8 hours. He will receive supplemental oxygen via nasal cannula and/or noninvasive airway pressure support devices as required to maintain an adequate oxygen saturation. CBCs and additional laboratory and/or radiographic evaluations will be obtained as needed. Patient will be continued on his home antihypertensive regiment, if appropriate, when his medication list has been verified and reconciled. He will be treated with a cardiac diet. He will use Ativan 1 mg IV every 4 hours as needed for anxiety or restlessness. He will use morphine sulfate 2 to 4 mg IV every 2 hours as needed for pain. - Time Time Spent with patient: 15-24 minutes Anticipated Discharge Disposition: Home, Self Care Anticipated Discharge Timeframe: pending clinical course
[2020-05-14] MEDS ORDERED: LORAZEPAM INJ 2 MG/1 ML VIAL ONE (21:19)
[2020-05-14] MEDS ORDERED: LORAZEPAM INJ 2 MG/1 ML VIAL IV PRN (21:22)
[2020-05-14] MEDS: MELATONIN 5 MG TABLET PO PRN (21:30)
[2020-05-14] MEDS: CEFTRIAXONE 1 GM/D5W RTU 1 GM/50 ML RTUPB IV SCH (21:30)
[2020-05-14] MEDS: AZITHROMYCIN 500 MG in DEXTROSE 5%-WATER 250 ML IV SCH (22:42)
[2020-05-15] MEDS: HEPARIN SOD (PORCINE) 5,000 UNIT/ML 1 ML VIAL SUBCUT SCH ×3 (05:27→21:30)
[2020-05-15] MEDS: REMDESIVIR (EUA) 100 MG in NORMAL SALINE 250 ML IV SCH (10:04)
[2020-05-15] MEDS: DEXAMETHASONE SOD PHOSPHATE INJ 4 MG/1 ML VIAL IV SCH (10:04)
[2020-05-15] MEDS: FAMOTIDINE 20 MG TABLET PO SCH ×2 (10:04→21:34)
--- NOTE | 2020-05-15 16:40 | PDOC PROGRESS REPORT ---
Subjective Progress Note for:: 05/15/20 Subjective:: No adverse events overnight. His oxygen requirement continued to increase overnight, and he is now on a nonrebreather but he looks a lot more comfortable and he is breathing a lot slower. An interesting thing we have noted is that when he is awake his breathing is a lot more comfortable and when he takes a nap or goes to sleep his respiratory rate increases. Reason For Visit: COMMUNITY ACQUIRED BILATERAL PNEUMONIA,PERSON Physical Exam Vital Signs: Temp Pulse Resp BP Pulse Ox 98.6 F 77 18 111/71 94 05/15/20 16:15 05/15/20 16:15 05/15/20 16:15 05/15/20 16:15 05/15/20 16:15 Intake & Output 05/14/20 05/15/20 05/16/20 06:59 06:59 06:59 Intake Total 2229 2007 250 Balance 2229 2007 250 Weight 119.9 kg 119.9 kg General appearance: PRESENT: no acute distress, cooperative, morbidly obese Respiratory exam: PRESENT: clear to auscultation too, symmetrical, unlabored. ABSENT: accessory muscle use, chest wall tenderness, crackles, prolonged expiratory phas, retraction, wheezes, tachypnea Cardiovascular exam: PRESENT: RRR, +S1, +S2 Pulses: PRESENT: normal carotid pulses Vascular exam: PRESENT: normal capillary refill GI/Abdominal exam: PRESENT: normal bowel sounds, soft. ABSENT: distended, guarding, rebound, tenderness Extremities exam: ABSENT: clubbing, pedal edema Musculoskeletal exam: PRESENT: normal inspection. ABSENT: deformity Neurological exam: PRESENT: alert, awake, oriented to person, oriented to place, oriented to situation Psychiatric exam: PRESENT: appropriate affect, normal mood Skin exam: PRESENT: dry, warm Results Laboratory Results: 05/13/20 05:30 05/13/20 05:30 05/11/20 05/11/20 05/11/20 19:00 20:15 22:00 Creatine Kinase 357 H Troponin I 0.018 0.022 05/12/20 06:35 Creatine Kinase Troponin I < 0.012 Impressions: Chest X-Ray 05/11/20 17:13 IMPRESSION: Patchy bibasilar consolidation. Assessment and Plan - Diagnosis (1) COVID-19 Is this a current diagnosis for this admission?: Yes Plan: Continue supplemental O2, Decadron, and remdesivir (2) Acute respiratory failure with hypoxia Is this a current diagnosis for this admission?: Yes Plan: Continue supplemental O2 to maintain SPO2 greater than 90% (3) Community acquired bilateral lower lobe pneumonia Is this a current diagnosis for this admission?: Yes Plan: Currently on empiric antibiotics for superimposed infection. We will continue today but will likely discontinue after 5 days in light of his positive coronav irus test. (4) Obesity (BMI 30-39.9) Is this a current diagnosis for this admission?: Yes Plan: Strongly encourage lifestyle modification - Plan Summary Summary: Patient will be admitted to the medical floor he will receive routine supportive and symptomatic cares. He will be treated with Rocephin 1 g IV daily and a azithromycin 500 mg IV daily. He will receive Decadron 2 mg IV every 8 hours. He will receive supplemental oxygen via nasal cannula and/or noninvasive airway pressure support devices as required to maintain an adequate oxygen saturation. CBCs and additional laboratory and/or radiographic evaluations will be obtained as needed. Patient will be continued on his home antihypertensive regiment, if appropriate, when his medication list has been verified and reconciled. He will be treated with a cardiac diet. He will use Ativan 1 mg IV every 4 hours as needed for anxiety or restlessness. He will use morphine sulfate 2 to 4 mg IV every 2 hours as needed for pain. - Time Time Spent with patient: 15-24 minutes Anticipated Discharge Disposition: Pending clinical course Anticipated Discharge Timeframe: Pending clinical course
[2020-05-15] MEDS: CEFTRIAXONE 1 GM/D5W RTU 1 GM/50 ML RTUPB IV SCH (21:34)
[2020-05-15] MEDS: AZITHROMYCIN 500 MG in DEXTROSE 5%-WATER 250 ML IV SCH (22:52)
--- NOTE | 2020-05-16 02:42 | RADIOLOGY REPORT (SQ) ---
EXAM DESCRIPTION: XR CHEST 1 VIEW COMPLETED DATE/TME: 05/15/2020 00:00 CLINICAL HISTORY: 50 years, Male, hypoxia COMPARISON: X-ray chest 05/11/2020 NUMBER OF VIEWS: TECHNIQUE: LIMITATIONS: None. FINDINGS: There is a considerable amount of bilateral pulmonary infiltrate, compatible with pneumonia. This infiltrate is either unchanged or slightly worse, as compared with the prior chest x-ray. There is no significant sized pleural effusion. The heart and mediastinum are unremarkable. Pulmonary vascularity appears normal. IMPRESSION: Bilateral pneumonia. copyright 2010 [employer]- All Rights Reserved
[2020-05-16] MEDS: HEPARIN SOD (PORCINE) 5,000 UNIT/ML 1 ML VIAL SUBCUT SCH (05:16)
[2020-05-16] MEDS ORDERED: MORPHINE SULFATE 10 MG/ML INJ IV PRN (10:11)
[2020-05-16] MEDS ORDERED: LEVALBUTEROL HCL NEB 0.63 MG/3 ML AMPUL NEB PRN (10:17)
[2020-05-16] MEDS ORDERED: IPRATROPIUM BROMIDE 0.02% NEB 0.5 MG/2.5 ML AMPUL NEB PRN (10:17)
--- NOTE | 2020-05-16 10:29 | PDOC PROGRESS REPORT ---
Subjective Progress Note for:: 05/16/20 Subjective:: 50-year-old male past medical history of obesity, hypertension, presented to ED with lightheadedness, nausea, abdominal cramps, subjective fever, malaise, COVID-19 was suspected and patient was admitted for further management. 05/16/2020. Patient complaining of worsening shortness of breath, anxiety and cough, otherwise alert and oriented noted to be mildly respiratory distress, denies any chest pain, nausea, vomiting, diarrhea, constipation or any urinary symptoms. Reason For Visit: COMMUNITY ACQUIRED BILATERAL PNEUMONIA,PERSON Physical Exam Vital Signs: Temp Pulse Resp BP Pulse Ox 97.7 F 68 18 108/69 97 05/16/20 02:58 05/16/20 09:24 05/16/20 09:24 05/16/20 02:58 05/16/20 09:24 Intake & Output 05/15/20 05/16/20 05/17/20 06:59 06:59 06:59 Intake Total 2007 550 Balance 2007 550 Weight 119.9 kg 120 kg General appearance: PRESENT: mild distress, well-developed, well-nourished Head exam: PRESENT: atraumatic, normocephalic Respiratory exam: PRESENT: clear to auscultation too, symmetrical, tachypnea. ABSENT: rales, rhonchi, wheezes Cardiovascular exam: PRESENT: RRR, tachycardia. ABSENT: diastolic murmur, rubs, systolic murmur GI/Abdominal exam: PRESENT: normal bowel sounds, soft. ABSENT: distended, guarding, mass, organolmegaly, rebound, tenderness Neurological exam: PRESENT: alert, awake, oriented to person, oriented to place, oriented to time, oriented to situation, CN II-XII grossly intact. ABSENT: motor sensory deficit Results Laboratory Results: 05/13/20 05:30 05/13/20 05:30 05/11/20 05/11/20 05/11/20 19:00 20:15 22:00 Creatine Kinase 357 H Troponin I 0.018 0.022 05/12/20 06:35 Creatine Kinase Troponin I < 0.012 Impressions: Chest X-Ray 05/15/20 00:00 IMPRESSION: Bilateral pneumonia. copyright 2010 [employer]- All Rights Reserved Assessment and Plan - Diagnosis (1) Acute respiratory failure with hypoxia Is this a current diagnosis for this admission?: Yes Plan: Due to COVID-19 infection likely complicated by underlying bacterial pneumonia likely strep pneumo. Chest x-ray on admission positive for bilateral pneumonia. Temperature on admission was 103.0, COVID-19 serology positive. SPO2 WNL on 15 L nasal cannula. Oxygen demand trending up, patient does not want to use BiPAP stating he is claustrophobic, SPO2 WNL on 10 to 15 L nasal cannula. Day 3 IV antibiotics. Day 3 of IV azithromycin. Day 3 IV ceftriaxone. Day 3 IV remdesivir. Day p.o. steroids. Continue broad-spectrum IV antibiotics, remdesivir, steroids, anticoagulation, DuoNeb's, incentive spirometry, flutter valve, supplemental oxygen, BiPAP. We will obtain ABG. (2) Bilateral pulmonary infiltrates on chest x-ray Is this a current diagnosis for this admission?: Yes Plan: Due to COVID-19 infection likely complicated by underlying bacterial pneumonia likely strep pneumo. Plan as per #1. (3) COVID-19 Is this a current diagnosis for this admission?: Yes Plan: Plan as per #1. (4) Community acquired bilateral lower lobe pneumonia Is this a current diagnosis for this admission?: Yes Plan: Likely superimposed bacterial pneumonia in the setting of COVID-19 infection. Plan as per #1. (5) Hypertension Qualifiers: Hypertension type: essential hypertension Qualified Code(s): I10 - Essential (primary) hypertension Is this a current diagnosis for this admission?: Yes Plan: Euvolemic. Normotensive. Continue as needed metoprolol, IV hydralazine, resume home meds. Adjust meds as needed. Outpatient PCP follow-up. (6) Obesity (BMI 30-39.9) Is this a current diagnosis for this admission?: Yes Plan: BMI 39.1. Diet and lifestyle modification recommended. Will obtain TSH, lipid panel and hemoglobin A1c. - Plan Summary Summary: Patient will be admitted to the medical floor he will receive routine supportive and symptomatic cares. He will be treated with Rocephin 1 g IV daily and a az ithromycin 500 mg IV daily. He will receive Decadron 2 mg IV every 8 hours. He will receive supplemental oxygen via nasal cannula and/or noninvasive airway pressure support devices as required to maintain an adequate oxygen saturation. CBCs and additional laboratory and/or radiographic evaluations will be obtained as needed. Patient will be continued on his home antihypertensive regiment, if appropriate, when his medication list has been verified and reconciled. He will be treated with a cardiac diet. He will use Ativan 1 mg IV every 4 hours as needed for anxiety or restlessness. He will use morphine sulfate 2 to 4 mg IV every 2 hours as needed for pain. - Time Time Spent with patient: 35 or more minutes Medications reviewed and adjusted accordingly: Yes Anticipated Discharge Disposition: Home, Self Care Anticipated Discharge Timeframe: within 72 hours
[2020-05-16] MEDS: REMDESIVIR (EUA) 100 MG in NORMAL SALINE 250 ML IV SCH (11:12)
[2020-05-16] MEDS: FAMOTIDINE 20 MG TABLET PO SCH ×2 (11:12→22:23)
[2020-05-16 11:20] LABS: INTERNATIONAL RATION (INR) 1.09; PROTHROMBIN TIME 14.3 SEC (11.4-15.4)
[2020-05-16 11:22] LABS: D-DIMER 0.71 ug/mL (0.00-0.50)
[2020-05-16 11:36] LABS: C-REACTIVE PROTEIN 65.1 mg/L (<10.0)
[2020-05-16] MEDS: DEXAMETHASONE 4 MG TABLET PO SCH ×2 (13:22→22:23)
[2020-05-16] MEDS: ENOXAPARIN SODIUM INJ 120 MG/0.8 ML DISP.SYRIN SUBCUT SCH ×2 (13:23→22:36)
[2020-05-16] MEDS: DEXAMETHASONE SOD PHOSPHATE INJ 4 MG/1 ML VIAL IV SCH (13:24)
[2020-05-16] MEDS: IPRATROPIUM BROMIDE 0.02% NEB 0.5 MG/2.5 ML AMPUL NEB SCH ×2 (13:53→21:56)
[2020-05-16] MEDS: LEVALBUTEROL HCL NEB 0.63 MG/3 ML AMPUL NEB SCH ×2 (13:53→21:56)
[2020-05-16 14:12] LABS: ARTERIAL BLOOD BASE EXCESS 0.9 mmol/L; ARTERIAL BLOOD H2CO3 1.08 mmol/L (1.05-1.35); ARTERIAL BLOOD HCO3 24.5 mmol/L (20-24); ARTERIAL BLOOD O2 SATURATION 95.7 % (94-98); ARTERIAL BLOOD PH 7.45 (7.35-7.45); ARTERIAL BLOOD PO2 74.9 mmHg (80-100); ARTERIAL BLOOD TOTAL CO2 25.6 mmol/L (23-27)
[2020-05-16 14:15] LABS: ARTERIAL BLOOD FIO2 100%
[2020-05-16] MEDS: ASCORBIC ACID 500 MG TABLET PO SCH (17:43)
[2020-05-16] MEDS: MELATONIN 5 MG TABLET PO PRN (22:20)
[2020-05-16] MEDS: CEFTRIAXONE 1 GM/D5W RTU 1 GM/50 ML RTUPB IV SCH (22:23)
[2020-05-17] MEDS ORDERED: AZITHROMYCIN INJ 500 MG VIAL IV ONE (01:47)
[2020-05-17] MEDS: AZITHROMYCIN 500 MG in DEXTROSE 5%-WATER 250 ML IV SCH ×2 (03:57→22:35)
[2020-05-17] MEDS: DEXAMETHASONE 4 MG TABLET PO SCH ×3 (05:24→22:36)
[2020-05-17] MEDS: IPRATROPIUM BROMIDE 0.02% NEB 0.5 MG/2.5 ML AMPUL NEB SCH ×3 (08:01→21:45)
[2020-05-17] MEDS: LEVALBUTEROL HCL NEB 0.63 MG/3 ML AMPUL NEB SCH ×3 (08:01→21:45)
[2020-05-17 08:50] LABS: ABSOLUTE BASOPHILS # (AUTO) 0.1 10^3/uL (0.0-0.2); ABSOLUTE LYMPHOCYTES (AUTO) 0.3 10^3/uL (0.5-4.7); ABSOLUTE MONOCYTES (AUTO) 0.2 10^3/uL (0.1-1.4); ABSOLUTE NEUT (AUTO) 5.8 10^3/uL (1.7-8.2); BASOPHILS % (AUTO) 0.9 % (0-2); EOSINOPHILS % (AUTO) 0.1 % (0-6); HEMATOCRIT 42.4 % (37.9-51.0); LYMPHOCYTES % (AUTO) 5.3 % (13-45); MEAN CORPUSCULAR HEMOGLOBIN 30.4 pg (27.0-33.4); MEAN CORPUSCULAR HGB CONC 35.5 g/dL (32.0-36.0); MEAN CORPUSCULAR VOLUME 86 fl (80-97); MONOCYTES % (AUTO) 3.7 % (3-13); PLATELET COUNT 211 10^3/uL (150-450); RED BLOOD COUNT 4.94 10^6/uL (4.35-5.55); RED CELL DISTRIBUTION WIDTH 13.5 % (11.5-14.0); TOTAL CELLS COUNTED % (AUTO) 100 %; WHITE BLOOD COUNT 6.4 10^3/uL (4.0-10.5)
[2020-05-17] MEDS: ENOXAPARIN SODIUM INJ 120 MG/0.8 ML DISP.SYRIN SUBCUT SCH ×2 (09:05→22:36)
[2020-05-17] MEDS: ASCORBIC ACID 500 MG TABLET PO SCH ×2 (09:05→17:20)
[2020-05-17] MEDS: FAMOTIDINE 20 MG TABLET PO SCH ×2 (09:05→22:36)
[2020-05-17] MEDS: ZINC SULFATE 220 MG CAPSULE PO SCH (09:05)
[2020-05-17 09:09] LABS: ALBUMIN 3.3 g/dL (3.5-5.0); ALKALINE PHOSPHATASE 50 U/L (38-126); ANION GAP 9 (5-19); ASPARTATE AMINO TRANSFERASE 40 U/L (17-59); BILIRUBIN,DIRECT 0.5 mg/dL (0.0-0.4); BILIRUBIN,TOTAL 1.1 mg/dL (0.2-1.3); BLOOD UREA NITROGEN 21 mg/dL (7-20); CALCIUM 8.3 mg/dL (8.4-10.2); CARBON DIOXIDE 26 mmol/L (22-30); CHLORIDE 100 mmol/L (98-107); GLUCOSE 113 mg/dL (75-110); POTASSIUM 4.8 mmol/L (3.6-5.0); TOTAL PROTEIN 6.2 g/dL (6.3-8.2)
[2020-05-17] MEDS: REMDESIVIR (EUA) 100 MG in NORMAL SALINE 250 ML IV SCH (10:44)
--- NOTE | 2020-05-17 10:58 | PDOC PROGRESS REPORT ---
Subjective Progress Note for:: 05/17/20 Subjective:: 50-year-old male past medical history of obesity, hypertension, presented to ED with lightheadedness, nausea, abdominal cramps, subjective fever, malaise, COVID-19 was suspected and patient was admitted for further management. 05/16/2020. Patient complaining of worsening shortness of breath, anxiety and cough, otherwise alert and oriented noted to be mildly respiratory distress, denies any chest pain, nausea, vomiting, diarrhea, constipation or any urinary symptoms. 05/17/2020. No acute events overnight. Patient is reporting moderate improvement of his symptoms, still on supplemental SPO2, denies any chest pain, nausea, vomiting, diarrhea, constipation or any urinary symptoms, alert and oriented x3 in no apparent distress cooperative with physical examination. Reason For Visit: COMMUNITY ACQUIRED BILATERAL PNEUMONIA,PERSON Physical Exam Vital Signs: Temp Pulse Resp BP Pulse Ox 98.9 F 66 21 H 110/68 93 05/17/20 07:28 05/17/20 07:28 05/17/20 07:28 05/17/20 07:28 05/17/20 07:28 Intake & Output 05/16/20 05/17/20 05/18/20 06:59 06:59 06:59 Intake Total 550 550 Balance 550 550 Weight 120 kg 118.4 kg General appearance: PRESENT: no acute distress, obese, well-developed, well- nourished Head exam: PRESENT: atraumatic, normocephalic Respiratory exam: PRESENT: clear to auscultation too. ABSENT: rales, rhonchi, wheezes Cardiovascular exam: PRESENT: tachycardia GI/Abdominal exam: PRESENT: normal bowel sounds, soft. ABSENT: distended, guarding, mass, organolmegaly, rebound, tenderness Neurological exam: PRESENT: alert, awake, oriented to person, oriented to place, oriented to time, oriented to situation, CN II-XII grossly intact. ABSENT: motor sensory deficit Results Laboratory Results: 05/17/20 08:30 05/17/20 08:30 05/16/20 05/16/20 05/17/20 10:52 13:29 08:30 WBC RBC Hgb Hct MCV MCH MCHC RDW Plt Count Seg Neutrophils % Carbonic Acid 1.08 HCO3/H2CO3 Ratio 22:1 ABG pH 7.45 ABG pCO2 36.0 ABG pO2 74.9 L ABG HCO3 24.5 H ABG O2 Saturation 95.7 ABG Base Excess 0.9 FiO2 100% Sodium 135.0 L Potassium 4.8 Chloride 100 Carbon Dioxide 26 Anion Gap 9 BUN 21 H Creatinine 0.86 Est GFR ( Amer) > 60 Glucose 113 H Calcium 8.3 L Ferritin 794.00 H Total Bilirubin 1.1 AST 40 Alkaline Phosphatase 50 C-Reactive Protein 65.1 H Total Protein 6.2 L Albumin 3.3 L 05/17/20 08:30 WBC 6.4 RBC 4.94 Hgb 15.0 Hct 42.4 MCV 86 MCH 30.4 MCHC 35.5 RDW 13.5 Plt Count 211 Seg Neutrophils % 90.0 H Carbonic Acid HCO3/H2CO3 Ratio ABG pH ABG pCO2 ABG pO2 ABG HCO3 ABG O2 Saturation ABG Base Excess FiO2 Sodium Potassium Chloride Carbon Dioxide Anion Gap BUN Creatinine Est GFR ( Amer) Glucose Calcium Ferritin Total Bilirubin AST Alkaline Phosphatase C-Reactive Protein Total Protein Albumin 05/11/20 21:35 Blood Blood Culture - Final NO GROWTH IN 5 DAYS 05/11/20 20:05 Blood Blood Culture - Final NO GROWTH IN 5 DAYS 05/11/20 05/11/20 05/11/20 19:00 20:15 22:00 Creatine Kinase 357 H Troponin I 0.018 0.022 05/12/20 06:35 Creatine Kinase Troponin I < 0.012 Impressions: Chest X-Ray 05/15/20 00:00 IMPRESSION: Bilateral pneumonia. copyright 2010 [employer]- All Rights Reserved Assessment and Plan - Diagnosis (1) Acute respiratory failure with hypoxia Is this a current diagnosis for this admission?: Yes Plan: Moderate improvement. SPO2 WNL on 1 to 15 L nasal cannula. ABG shows mild hypoxemia. Due to COVID-19 infection likely complicated by underlying bacterial pneumonia likely strep pneumo. Chest x-ray on admission positive for bilateral pneumonia. Temperature on admission was 103.0, COVID-19 serology positive. Day 4 IV antibiotics. Day 4 of IV azithromycin. Day 4 IV ceftriaxone. Day 4 IV remdesivir. Day 4 p.o. steroids. Continue broad-spectrum IV antibiotics, remdesivir, steroids, anticoagulation, DuoNeb's, incentive spirometry, flutter valve, supplemental oxygen, BiPAP. (2) Bilateral pulmonary infiltrates on chest x-ray Is this a current diagnosis for this admission?: Yes Plan: Due to COVID-19 infection likely complicated by underlying bacterial pneumonia likely strep pneumo. Plan as per #1. (3) COVID-19 Is this a current diagnosis for this admission?: Yes Plan: Plan as per #1. (4) Community acquired bilateral lower lobe pneumonia Is this a current diagnosis for this admission?: Yes Plan: Likely superimposed bacterial pneumonia in the setting of COVID-19 infection. Plan as per #1. (5) Hypertension Qualifiers: Hypertension type: essential hypertension Qualified Code(s): I10 - Essential (primary) hypertension Is this a current diagnosis for this admission?: Yes Plan: Euvolemic. Normotensive. Continue as needed metoprolol, IV hydralazine, resume home meds. Adjust meds as needed. Outpatient PCP follow-up. (6) Obesity (BMI 30-39.9) Is this a current diagnosis for this admission?: Yes Plan: BMI 39.1. Diet and lifestyle modification recommended. Will obtain TSH, lipid panel and hemoglobin A1c. - Plan Summary Summary: Patient will be admitted to the medical floor he will receive routine supportive and symptomatic cares. He will be treated with Rocephin 1 g IV daily and a azithromycin 500 mg IV daily. He will receive Decadron 2 mg IV every 8 hours. He will receive supplemental oxygen via nasal cannula and/or noninvasive airway pressure support devices as required to maintain an adequate oxygen saturation. CBCs and additional laboratory and/or radiographic evaluations will be obtained as needed. Patient will be continued on his home antihypertensive regiment, if appropriate, when his medication list has been verified and reconciled. He will be treated with a cardiac diet. He will use Ativan 1 mg IV every 4 hours as needed for anxiety or restlessness. He will use morphine sulfate 2 to 4 mg IV every 2 hours as needed for pain. - Time Time Spent with patient: 25-34 minutes Medications reviewed and adjusted accordingly: Yes Anticipated Discharge Disposition: Home, Self Care Anticipated Discharge Timeframe: within 36 hours
[2020-05-17] MEDS: GUAIFENESIN SYRP 200 MG/10 ML UDC PO SCH ×3 (11:28→17:20)
[2020-05-17] MEDS: CEFTRIAXONE 1 GM/D5W RTU 1 GM/50 ML RTUPB IV SCH (22:35)
[2020-05-18 05:26] LABS: INTERNATIONAL RATION (INR) 1.19; PROTHROMBIN TIME 15.3 SEC (11.4-15.4)
[2020-05-18] MEDS: DEXAMETHASONE 4 MG TABLET PO SCH ×3 (05:31→21:01)
[2020-05-18 05:32] LABS: HEMATOCRIT 43.7 % (37.9-51.0); HEMOGLOBIN 15.2 g/dL (13.5-17.0); MEAN CORPUSCULAR HEMOGLOBIN 29.9 pg (27.0-33.4); MEAN CORPUSCULAR HGB CONC 34.8 g/dL (32.0-36.0); MEAN CORPUSCULAR VOLUME 86 fl (80-97); PLATELET COUNT 229 10^3/uL (150-450); RED BLOOD COUNT 5.08 10^6/uL (4.35-5.55); RED CELL DISTRIBUTION WIDTH 13.9 % (11.5-14.0); WHITE BLOOD COUNT 6.6 10^3/uL (4.0-10.5)
[2020-05-18 05:40] LABS: ALBUMIN 3.5 g/dL (3.5-5.0); ALKALINE PHOSPHATASE 49 U/L (38-126); ANION GAP 9 (5-19); ASPARTATE AMINO TRANSFERASE 34 U/L (17-59); BILIRUBIN,DIRECT 0.4 mg/dL (0.0-0.4); BILIRUBIN,TOTAL 0.8 mg/dL (0.2-1.3); BLOOD UREA NITROGEN 21 mg/dL (7-20); CALCIUM 8.4 mg/dL (8.4-10.2); CARBON DIOXIDE 24 mmol/L (22-30); CHLORIDE 102 mmol/L (98-107); CHOLESTEROL 93.38 mg/dL (0-200); GLUCOSE 130 mg/dL (75-110); POTASSIUM 4.7 mmol/L (3.6-5.0); TOTAL PROTEIN 6.5 g/dL (6.3-8.2); TRIGLYCERIDES 126 mg/dL (<150)
[2020-05-18 05:58] LABS: DIRECT LDL 47 mg/dL (<100)
[2020-05-18 06:08] LABS: ABSOLUTE LYMPHOCYTES# (MANUAL) 0.2 10^3/uL (0.5-4.7); ABSOLUTE MONOCYTES # (MANUAL) 0.2 10^3/uL (0.1-1.4); BAND NEUTROPHILS % (MANUAL) 1 % (3-5); BASOPHILS % (MANUAL) 0 % (0-2); EOSINOPHILS % (MANUAL) 0 % (0-6); LYMPHOCYTES % (MANUAL) 3 % (13-45); MONOCYTES % (MANUAL) 3 % (3-13); SEGMENTED NEUTROPHILS % (MAN) 93 % (42-78); TOTAL CELLS COUNTED 100
[2020-05-18 06:09] LABS: PLATELET COMMENT ADEQUATE; RBC MORPHOLOGY COMMENT NORMO-CYTIC/CHROMIC
[2020-05-18] MEDS: LEVALBUTEROL HCL NEB 0.63 MG/3 ML AMPUL NEB SCH ×3 (08:51→20:50)
[2020-05-18] MEDS: IPRATROPIUM BROMIDE 0.02% NEB 0.5 MG/2.5 ML AMPUL NEB SCH ×3 (08:51→20:50)
[2020-05-18] MEDS: ASCORBIC ACID 500 MG TABLET PO SCH ×2 (10:02→17:07)
[2020-05-18] MEDS: FAMOTIDINE 20 MG TABLET PO SCH ×2 (10:02→21:01)
[2020-05-18] MEDS: ZINC SULFATE 220 MG CAPSULE PO SCH (10:02)
[2020-05-18] MEDS: ENOXAPARIN SODIUM INJ 120 MG/0.8 ML DISP.SYRIN SUBCUT SCH ×2 (10:02→21:01)
[2020-05-18] MEDS: GUAIFENESIN SYRP 200 MG/10 ML UDC PO SCH ×3 (10:02→17:07)
--- NOTE | 2020-05-18 12:27 | PDOC PROGRESS REPORT ---
Subjective Progress Note for:: 05/18/20 Subjective:: 50-year-old male past medical history of obesity, hypertension, presented to ED with lightheadedness, nausea, abdominal cramps, subjective fever, malaise, COVID-19 was suspected and patient was admitted for further management. 05/16/2020. Patient complaining of worsening shortness of breath, anxiety and cough, otherwise alert and oriented noted to be mildly respiratory distress, denies any chest pain, nausea, vomiting, diarrhea, constipation or any urinary symptoms. 05/17/2020. No acute events overnight. Patient is reporting moderate improvement of his symptoms, still on supplemental SPO2, denies any chest pain, nausea, vomiting, diarrhea, constipation or any urinary symptoms, alert and oriented x3 in no apparent distress cooperative with physical examination. 05/18/2020. No acute events overnight. Moderate improvement of respiratory symptoms, patient is off of nonrebreather, currently on nasal cannula 6 L saturating low 90s, on my encounter sitting at the edge of the bed enjoying his breakfast, denies any fever, chills, nausea, vomiting, diarrhea, constipation or any urinary symptoms. Reason For Visit: COMMUNITY ACQUIRED BILATERAL PNEUMONIA,PERSON Physical Exam Vital Signs: Temp Pulse Resp BP Pulse Ox 97.8 F 67 20 119/74 91 L 05/18/20 07:26 05/18/20 08:51 05/18/20 08:51 05/18/20 07:26 05/18/20 08:51 Intake & Output 05/17/20 05/18/20 05/19/20 06:59 06:59 06:59 Intake Total 550 1270 Balance 550 1270 Weight 118.4 kg 117.5 kg General appearance: PRESENT: obese Head exam: PRESENT: atraumatic, normocephalic Respiratory exam: PRESENT: clear to auscultation too, tachypnea. ABSENT: rales, rhonchi, wheezes Cardiovascular exam: PRESENT: RRR. ABSENT: diastolic murmur, rubs, systolic murmur GI/Abdominal exam: PRESENT: normal bowel sounds, soft. ABSENT: distended, guarding, mass, organolmegaly, rebound, tenderness Neurological exam: PRESENT: alert, awake, oriented to person, oriented to place, oriented to time, oriented to situation, CN II-XII grossly intact. ABSENT: motor sensory deficit Results Laboratory Results: 05/18/20 04:37 05/18/20 04:37 05/18/20 05/18/20 05/18/20 04:37 04:37 04:37 WBC 6.6 RBC 5.08 Hgb 15.2 Hct 43.7 MCV 86 MCH 29.9 MCHC 34.8 RDW 13.9 Plt Count 229 Seg Neutrophils % Not Reportable Sodium 135.3 L Potassium 4.7 Chloride 102 Carbon Dioxide 24 Anion Gap 9 BUN 21 H Creatinine 0.79 Est GFR ( Amer) > 60 Glucose 130 H Calcium 8.4 Magnesium 2.8 H Total Bilirubin 0.8 AST 34 Alkaline Phosphatase 49 Total Protein 6.5 Albumin 3.5 Triglycerides 126 Cholesterol 93.38 LDL Cholesterol Direct 47 VLDL Cholesterol 25.0 HDL Cholesterol 18 L TSH Cancelled 05/18/20 09:09 WBC RBC Hgb Hct MCV MCH MCHC RDW Plt Count Seg Neutrophils % Sodium Potassium Chloride Carbon Dioxide Anion Gap BUN Creatinine Est GFR ( Amer) Glucose Calcium Magnesium Total Bilirubin AST Alkaline Phosphatase Total Protein Albumin Triglycerides Cholesterol LDL Cholesterol Direct VLDL Cholesterol HDL Cholesterol TSH 0.35 L 05/11/20 05/11/20 05/11/20 19:00 20:15 22:00 Creatine Kinase 357 H Troponin I 0.018 0.022 05/12/20 06:35 Creatine Kinase Troponin I < 0.012 Impressions: Chest X-Ray 05/15/20 00:00 IMPRESSION: Bilateral pneumonia. copyright 2010 [employer]- All Rights Reserved Assessment and Plan - Diagnosis (1) Acute respiratory failure with hypoxia Is this a current diagnosis for this admission?: Yes Plan: Moderate improvement. SPO2 WNL on 6 L nasal cannula. ABG on 05/17/2020 showed mild hypoxemia. Due to COVID-19 infection likely complicated by underlying bacterial pneumonia likely strep pneumo. Chest x-ray on admission positive for bilateral pneumonia. Temperature on admission was 103.0, COVID-19 serology positive. Day 5 IV antibiotics. Day 5 of IV azithromycin. Day 5 IV ceftriaxone. Received 4 days of IV remdesivir. Day 4 p.o. steroids. Continue broad-spectrum IV antibiotics, steroids, anticoagulation, DuoNeb's, incentive spirometry, flutter valve, supplemental oxygen, BiPAP. (2) Bilateral pulmonary infiltrates on chest x-ray Is this a current diagnosis for this admission?: Yes Plan: Due to COVID-19 infection likely complicated by underlying bacterial pneumonia likely strep pneumo. Plan as per #1. (3) COVID-19 Is this a current diagnosis for this admission?: Yes Plan: Plan as per #1. (4) Community acquired bilateral lower lobe pneumonia Is this a current diagnosis for this admission?: Yes Plan: Likely superimposed bacterial pneumonia in the setting of COVID-19 infection. Plan as per #1. (5) Hypertension Qualifiers: Hypertension type: essential hypertension Qualified Code(s): I10 - Essent ial (primary) hypertension Is this a current diagnosis for this admission?: Yes Plan: Euvolemic. Normotensive. Continue as needed metoprolol, IV hydralazine, resume home meds. Adjust meds as needed. Outpatient PCP follow-up. (6) Obesity (BMI 30-39.9) Is this a current diagnosis for this admission?: Yes Plan: BMI 39.1. Diet and lifestyle modification recommended. Hemoglobin A1c 6.0, lipid panel WNL, mildly suppressed TSH. (7) Elevated hemoglobin A1c Is this a current diagnosis for this admission?: Yes Plan: Hemoglobin A1c 6.0. Denies any personal or family history of diabetes. Diabetic education, lifestyle and diet modification recommended. Outpatient PCP follow-up. - Plan Summary Summary: Patient will be admitted to the medical floor he will receive routine supportive and symptomatic cares. He will be treated with Rocephin 1 g IV daily and a azithromycin 500 mg IV daily. He will receive Decadron 2 mg IV every 8 hours. He will receive supplemental oxygen via nasal cannula and/or noninvasive airway pressure support devices as required to maintain an adequate oxygen saturation. CBCs and additional laboratory and/or radiographic evaluations will be obtained as needed. Patient will be continued on his home antihypertensive regiment, if appropriate, when his medication list has been verified and reconciled. He will be treated with a cardiac diet. He will use Ativan 1 mg IV every 4 hours as needed for anxiety or restlessness. He will use morphine sulfate 2 to 4 mg IV every 2 hours as needed for pain. - Time Time Spent with patient: 25-34 minutes Medications reviewed and adjusted accordingly: Yes Anticipated Discharge Disposition: Home, Self Care Anticipated Discharge Timeframe: within 24 hours
[2020-05-18 12:43] LABS: APPEARANCE,URINE CLEAR; BILIRUBIN,URINE NEGATIVE (NEGATIVE); COLOR,URINE YELLOW; GLUCOSE, URINE NEGATIVE (NEGATIVE); KETONES,URINE NEGATIVE (NEGATIVE); LEUKOCYTE ESTERASE,URINE NEGATIVE (NEGATIVE); NITRITE,URINE NEGATIVE (NEGATIVE); PROTEIN,URINE NEGATIVE (NEGATIVE); URINE SPECIFIC GRAVITY 1.021; UROBILINOGEN,URINE NEGATIVE mg/dL (<2.0)
[2020-05-18] MEDS: CEFTRIAXONE 1 GM/D5W RTU 1 GM/50 ML RTUPB IV SCH (21:01)
[2020-05-18] MEDS: AZITHROMYCIN 500 MG in DEXTROSE 5%-WATER 250 ML IV SCH (22:29)
[2020-05-19] MEDS: DEXAMETHASONE 4 MG TABLET PO SCH (05:31)
[2020-05-19] MEDS: IPRATROPIUM BROMIDE 0.02% NEB 0.5 MG/2.5 ML AMPUL NEB SCH (07:53)
[2020-05-19] MEDS: LEVALBUTEROL HCL NEB 0.63 MG/3 ML AMPUL NEB SCH (07:53)
[2020-05-19] MEDS: ZINC SULFATE 220 MG CAPSULE PO SCH (10:03)
[2020-05-19] MEDS: ASCORBIC ACID 500 MG TABLET PO SCH (10:03)
[2020-05-19] MEDS: ENOXAPARIN SODIUM INJ 120 MG/0.8 ML DISP.SYRIN SUBCUT SCH ×2 (10:04→10:15)
[2020-05-19] MEDS: GUAIFENESIN SYRP 200 MG/10 ML UDC PO SCH ×2 (10:04→10:15)
[2020-05-19] MEDS: FAMOTIDINE 20 MG TABLET PO SCH (10:04)
[2020-05-19 10:59] VITALS: BP 123/75
[2020-05-19] MEDS ORDERED: INFLUENZA QUAD (6MOS+) 2020-21 VAC 0.5 ML SYR IM ONE (11:15)
--- NOTE | 2020-05-19 17:07 | Left Against Medical Advice ---
Against Medical Advice Admission Date/Time: 05/12/20 00:26 Primary Care Provider: TYSON GUZMAN JR, MD Date of Patient Emigration: 05/19/20 - Diagnosis: (1) Acute respiratory failure with hypoxia Is this a current diagnosis for this admission?: Yes (2) Bilateral pulmonary infiltrates on chest x-ray Is this a current diagnosis for this admission?: Yes (3) COVID-19 Is this a current diagnosis for this admission?: Yes (4) Community acquired bilateral lower lobe pneumonia Is this a current diagnosis for this admission?: Yes (5) Hypertension Is this a current diagnosis for this admission?: Yes (6) Obesity (BMI 30-39.9) Is this a current diagnosis for this admission?: Yes (7) Elevated hemoglobin A1c Is this a current diagnosis for this admission?: Yes - Summary: Summary: Please see Admission and Progress Notes as well. HARJIT MONCADA is a 50 M, who LEFT AGAINST MEDICAL ADVICE. The Patient was admitted on 05/12/20 00:26. As per admitting physician Harjit Moncada is a 50 year old male who presented to the emergency room with a 1 day history of lightheadedness. He admits gradually developing episodes of lightheadedness accompanied by nausea and occasional abdominal cramps. His lightheadedness is been associated with a subjective fever, malaise, ague and dysgeusia. He denies other associated or accompanying signs and symptoms. His lightheadedness and other symptoms have gradually worsened over the course of the last day. He admits that his father tested positive for COVID-19. He denies prior similar episodes. He has not identified any additional aggravating or ameliorating factors for his lightheadedness. In the emergency room he was found to have bibasilar infiltrates on his chest x-ray and developed hypoxia requiring supplemental oxygen over the course of his emergency room visit. He was tested for COVID-19. He received IV Rocephin and a azithromycin. He received IV Decadron. He received IV fluids in bolus doses x2 L. He was subsequently admitted to the medical floor for further evaluation and treatment. - Diagnosis (1) Acute respiratory failure with hypoxia Moderate improvement. SPO2 WNL on 4 L nasal cannula. Patient is still hypoxic on room air however he decided to leave AMA. Patient was strongly advised to come back to ED if his shortness of breath gets worse. ABG on 05/17/2020 showed mild hypoxemia. Due to COVID-19 infection likely complicated by underlying bacterial pneumonia likely strep pneumo. Chest x-ray on admission positive for bilateral pneumonia. Temperature on admission was 103.0, COVID-19 serology positive. Received 5 days of IV antibiotics. Received 5 days of IV ceftriaxone. Received 4 days of IV remdesivir. Received 5 days of p.o. steroids. (2) Bilateral pulmonary infiltrates on chest x-ray Due to COVID-19 infection likely complicated by underlying bacterial pneumonia likely strep pneumo. Plan as per #1. (3) COVID-19 Plan as per #1. (4) Community acquired bilateral lower lobe pneumonia Likely superimposed bacterial pneumonia in the setting of COVID-19 infection. Plan as per #1. (5) Hypertension Euvolemic. Normotensive. Continue as needed metoprolol, IV hydralazine, resume home meds. Adjust meds as needed. Outpatient PCP follow-up. (6) Obesity (BMI 30-39.9) BMI 39.1. Diet and lifestyle modification recommended. Hemoglobin A1c 6.0, lipid panel WNL, mildly suppressed TSH. (7) Elevated hemoglobin A1c Hemoglobin A1c 6.0. Denies any personal or family history of diabetes. Diabetic education, lifestyle and diet modification recommended. Outpatient PCP follow-up.
== END 2020-05-19 12:25 | disposition left against medical advice (07) | DRG 177 ==
LOC: ER 16:35 → OBSVTOIN 05-12 00:26 → EH 05-12 00:26 → 3N 05-12 01:26 → UNDODISIN 05-16 15:00
PROVIDERS: ADMIT Emergency Medicine; ATTEND Internal Medicine
PROC: XW033E5 Introduction of Remdesivir Anti-infective into Peripheral Vein, Percutaneous Approach, New Technology Group 5 (ICD-10-PCS; principal; 2020-05-13)
PROC: 3E02340 Introduction of Influenza Vaccine into Muscle, Percutaneous Approach (ICD-10-PCS; 2020-05-19)
DX: U07.1 COVID-19 (principal); J12.89 Other viral pneumonia; J96.01 Acute respiratory failure with hypoxia; J13 Pneumonia due to Streptococcus pneumoniae; I10 Essential (primary) hypertension; E66.9 Obesity, unspecified; R71.8 Other abnormality of red blood cells; Z68.39 Body mass index [BMI] 39.0-39.9, adult; M19.90 Unspecified osteoarthritis, unspecified site; Z82.49 Family history of ischemic heart disease and other diseases of the circulatory system; Z88.0 Allergy status to penicillin; Z88.2 Allergy status to sulfonamides; Z86.010 Personal history of colon polyps; Z88.1 Allergy status to other antibiotic agents; Z23 Encounter for immunization
CPT/HCPCS: 36415; 36600; 71045; 80053; 80061; 81001; 82550; 82728; 82803; 83036; 83605; 83615; 83735; 84443; 84484; 85025; 85027; 85379; 85610; 86140; 87040; 87635; 87804; 90471; 90686; 93005; 93010; 94660; 96361; 96374; 99285; C9803; G0008; J0456; J0696; J1100; J1644; J1650; J2060; J3490; J7030; J7050; J7060; J7644; J8540

== ENCOUNTER 2020-05-19 21:51 | Inpatient (IN) | payer OTHER ==
--- NOTE | 2020-05-19 23:17 | ER Document Report ---
ED Respiratory Problem - General Chief Complaint: Shortness Of Breath Stated Complaint: SHORTNESS OF BREATH/COVID + Time Seen by Provider: 05/19/20 22:41 Notes: Patient is a 50-year-old male that comes emergency department for chief complaint of shortness of breath and low oxygen saturations. 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 He states that at home he had shortness of breath, he was checking his oxygen level and it was let very low in the 80s, he states that as result he decided to come back. He denies any symptoms other than shortness of breath. He denies chest pain, fever, vomiting, diarrhea, headache. Past medical history of hypertension and "some sort of lung disorder" for which she takes Singulair, he denies smoking, COPD, asthma, recreational drugs. TRAVEL OUTSIDE OF THE [place] IN LAST 30 DAYS: No - Related Data Allergies/Adverse Reactions: ciprofloxacin [From Cipro] Allergy (Intermediate, Verified 05/11/20 19:23) Generalized rash Penicillins Allergy (Intermediate, Verified 05/11/20 19:23) Generalized rash Sulfa (Sulfonamide Antibiotics) Allergy (Intermediate, Verified 05/11/20 19:23) Generalized rash Past Medical History - General Information source: Patient - Social History Smoking Status: Never Smoker Frequency of alcohol use: None Drug Abuse: None Lives with: Family Family History: Hypertension. denies: CAD, DM, Malignancy Patient has homicidal ideation: No - Past Medical History Cardiac Medical History: Reports: Hx Hypertension Denies: Hx Atrial Fibrillation, Hx Coronary Artery Disease, Hx DVT, Hx Heart Attack, Hx Hypercholesterolemia, Hx Peripheral Vascular Disease, Hx Pulmonary Embolism Pulmonary Medical History: Denies: Hx Asthma, Hx Bronchitis, Hx COPD, Hx Pneumonia Neurological Medical History: Denies: Hx Cerebrovascular Accident, Hx Seizures Endocrine Medical History: Denies: Hx Diabetes Mellitus Type 1, Hx Diabetes Mellitus Type 2, Hx Hyperthyroidism, Hx Hypothyroidism Renal/ Medical History: Denies: Hx Peritoneal Dialysis GI Medical History: Denies: Hx Cirrhosis, Hx Hepatitis Musculoskeletal Medical History: Reports Hx Arthritis - OSTEO, Denies Hx Fibromyalgia, Denies Hx Gout Skin Medical History: Denies Hx Eczema, Denies Hx Psoriasis Psychiatric Medical History: Denies: Hx Depression Infectious Medical History: Denies: Hx Hepatitis Past Surgical History: Reports: Other - Colonoscopy with polypectomy - Immunizations Hx Diphtheria, Pertussis, Tetanus Vaccination: Yes Review of Systems - Review of Systems Constitutional: See HPI EENT: No symptoms reported Cardiovascular: No symptoms reported Respiratory: See HPI Gastrointestinal: No symptoms reported Genitourinary: No symptoms reported Male Genitourinary: No symptoms reported Musculoskeletal: No symptoms reported Skin: No symptoms reported Hematologic/Lymphatic: No symptoms reported Neurological/Psychological: No symptoms reported Physical Exam - Vital signs Vitals: Pulse Ox 89 L 05/19/20 22:08 - Notes Notes: GENERAL: Slightly ill-appearing but still interactive, alert, and does not appear to be in distress HEAD: Normocephalic, atraumatic. EYES: Pupils equal, round, and reactive to light. Extraocular movements intact. ENT: Oral mucosa moist, tongue midline. Oropharynx unremarkable. Airway patent. Nares patent, sinuses non-tender, ear canals unremarkable, TM's intact. NECK: Full range of motion. Supple. Trachea midline. No lymphadenopathy. LUNGS: Rales in bilateral lower lung bases especially on the right. No respiratory distress, speaks in full sentences. Otherwise unremarkable. HEART: Regular rate and rhythm. No murmur ABDOMEN: Soft, non-tender. Non-distended. EXTREMITIES: Moves all 4 extremities spontaneously. No edema, normal radial and dorsalis pedis pulses bilaterally. No cyanosis. BACK: no cervical, thoracic, lumbar midline tenderness. No saddle anesthesia, normal distal neurovascular exam. Moves all extremities in full range of motion. NEUROLOGICAL: Alert and oriented x3. Normal speech. Cranial nerves II through XII grossly intact. Strength 5/5 in all extremities. PSYCH: Normal affect, normal mood. SKIN: Warm, dry, normal turgor. No rashes or lesions noted. Course - Re-evaluation Re-evalutation: Patient was initially 82% on room air, he was placed on nonrebreather in the room, when I saw him I transitioned him to 4 L nasal cannula. He is 91% on 4 L nasal cannula without labored breathing or tachypnea. He does have rales especially on the right side on auscultation. He is slightly ill-appearing but he is alert, oriented, has no other complaints except shortness of breath. Patient already has been diagnosed with COVID-19. CBC, chemistry nonspecific, troponin indeterminate, BNP is not elevated, EKG nonspecific. Chest x-ray shows bilateral pneumonia with possible slight worsening on the right compared to prior. I discussed with patient. Patient states he would prefer to go home but he understands that he is sick and he states he at this time is in full agreement with admission. Will discuss with hospitalist. Discussed with Dr. Dia, hospitalist, patient accepted to medical floor full admission for hypoxia, COVID-19 pneumonia. - Vital Signs Vital signs: Temp Pulse Resp BP Pulse Ox 99.0 F 25 H 123/76 95 05/19/20 22:36 05/19/20 22:36 05/19/20 22:36 05/19/20 22:36 - Laboratory Result Diagrams: 05/19/20 23:31 05/20/20 01:09 Laboratory results interpreted by me: 05/19/20 05/20/20 05/20/20 23:31 01:09 01:09 Lymph % (Auto) 9.3 L Seg Neutrophils % 82.3 H VBG pH 7.49 H VBG pCO2 32.1 L Sodium 133.7 L Potassium 5.1 H Carbon Dioxide 21 L BUN 26 H Direct Bilirubin 0.5 H - EKG Interpretation by Me Additional EKG results interpreted by me: EKG shows sinus rhythm at a rate of 81, QTc 460, normal axis, no T wave inversions or ST segment changes in consecutive leads, machine reads as normal Discharge - Discharge Clinical Impression: Hypoxia, COVID-19, Bilateral pulmonary infiltrates on chest x-ray Condition: Stable Disposition: ADMITTED INPATIENT Admitting Provider: [facility] (Hospitalist) Unit Admitted: Medical Floor
[2020-05-19 23:56] LABS: ABSOLUTE EOSINOPHILS # (AUTO) 0.2 10^3/uL (0.0-0.6); ABSOLUTE LYMPHOCYTES (AUTO) 0.6 10^3/uL (0.5-4.7); ABSOLUTE MONOCYTES (AUTO) 0.3 10^3/uL (0.1-1.4); ABSOLUTE NEUT (AUTO) 5.3 10^3/uL (1.7-8.2); BASOPHILS % (AUTO) 0.3 % (0-2); EOSINOPHILS % (AUTO) 2.7 % (0-6); HEMATOCRIT 44.4 % (37.9-51.0); HEMOGLOBIN 15.7 g/dL (13.5-17.0); LYMPHOCYTES % (AUTO) 9.3 % (13-45); MEAN CORPUSCULAR HEMOGLOBIN 30.9 pg (27.0-33.4); MEAN CORPUSCULAR HGB CONC 35.3 g/dL (32.0-36.0); MEAN CORPUSCULAR VOLUME 88 fl (80-97); MONOCYTES % (AUTO) 5.4 % (3-13); PLATELET COUNT 280 10^3/uL (150-450); RED BLOOD COUNT 5.06 10^6/uL (4.35-5.55); RED CELL DISTRIBUTION WIDTH 13.8 % (11.5-14.0); SEGMENTED NEUTROPHILS % (AUTO) 82.3 % (42-78); TOTAL CELLS COUNTED % (AUTO) 100 %; WHITE BLOOD COUNT 6.5 10^3/uL (4.0-10.5)
--- NOTE | 2020-05-20 00:06 | RADIOLOGY REPORT (SQ) ---
CLINICAL INDICATION: hypoxia, shortness of breath. TECHNIQUE: A single portable AP view was obtained of the chest at 2314 hours. COMPARISON: May 15, 2020. FINDINGS: The cardiomediastinal silhouette is enlarged but stable. The lungs again demonstrate patchy areas of interstitial and airspace disease, bilaterally mild progressive patchy airspace disease right hemithorax. Left hemithorax without significant interval change. No evidence of effusion or pneumothorax. Osteoarthritis. IMPRESSION: Mild progressive patchy interstitial and alveolar space disease right lung.
[2020-05-20 01:22] LABS: VENOUS BLOOD BASE EXCESS 1.5 mmol/L; VENOUS BLOOD PCO2 32.1 mmHg (35-63); VENOUS BLOOD PH 7.49 (7.30-7.42)
[2020-05-20 01:39] LABS: ALBUMIN 3.5 g/dL (3.5-5.0); ALKALINE PHOSPHATASE 56 U/L (38-126); ANION GAP 10 (5-19); ASPARTATE AMINO TRANSFERASE 37 U/L (17-59); BILIRUBIN,DIRECT 0.5 mg/dL (0.0-0.4); BILIRUBIN,TOTAL 1.2 mg/dL (0.2-1.3); BLOOD UREA NITROGEN 26 mg/dL (7-20); CALCIUM 8.8 mg/dL (8.4-10.2); CARBON DIOXIDE 21 mmol/L (22-30); CHLORIDE 103 mmol/L (98-107); GLUCOSE 109 mg/dL (75-110); POTASSIUM 5.1 mmol/L (3.6-5.0); TOTAL PROTEIN 6.5 g/dL (6.3-8.2)
[2020-05-20 01:51] LABS: TROPONIN I 0.025 ng/mL
[2020-05-20] MEDS ORDERED: ONDANSETRON HCL INJ/PF 4 MG/2 ML SDV IV PRN (03:26)
[2020-05-20] MEDS ORDERED: ACETAMINOPHEN 325 MG TABLET PO PRN ×2 (03:26→03:30)
[2020-05-20] MEDS ORDERED: MAG HYDROX/AL HYDROX/SIMETH SUSP 30 ML UDCUP PO PRN (03:26)
[2020-05-20] MEDS ORDERED: ALBUTEROL SULFATE HFA (90 MCG/PUFF) 8 GM MDI IH PRN (03:30)
--- NOTE | 2020-05-20 03:40 | PDOC H&P ---
History of Present Illness Admission Date/PCP: 05/20/20 02:31 Patient complains of: Abnormal pulse oximetry, COVID History of Present Illness: TANYA MONCADA is a 50 year old male who was recently hospitalized for COVID pneumonia as well as hypoxia. He had been treated with Remdesivir, ceftriaxone, azithromycin as well as steroids. However, he left AGAINST MEDICAL ADVICE this morning despite being hypoxic. States he felt well when he got home but his mother urged him to come back to the hospital after noting that he was hypoxic on pulse oximetry. He states he continues to experience fatigue and diarrhea. He however denies feeling shortness of breath notably. Denies any chest pain. Denies having any fevers since he got home. Occasionally gets nauseous but denies any vomiting currently. Denies history of COPD or asthma. Past Medical History Cardiac Medical History: Reports: Hypertension Denies: Atrial Fibrillation, Coronary Artery Disease, DVT, Myocardial Infarction, Hyperlipidema, Peripheral Vascular Disease, Pulmonary Embolism Pulmonary Medical History: Denies: Asthma, Bronchitis, Chronic Obstructive Pulmonary Disease (COPD), Pneumonia Neurological Medical History: Denies: Seizures Endocrine Medical History: Denies: Diabetes Mellitus Type 1, Diabetes Mellitus Type 2, Hyperthyroidism, Hypothyroidism GI Medical History: Denies: Cirrhosis, Hepatitis Musculoskeltal Medical History: Reports: Arthritis - OSTEO Denies: Fibromyalgia, Gout Skin Medical History: Denies: Eczema, Psoriasis Psychiatric Medical History: Denies: Depression Hematology: Denies: Anemia, Bleeding Tendencies Past Surgical History Past Surgical History: Reports: Other - Colonoscopy with polypectomy Social History Lives with: Family Smoking Status: Never Smoker Frequency of Alcohol Use: None Hx Recreational Drug Use: No Drugs: None Hx Prescription Drug Abuse: No - Advance Directive Resuscitation Status: Full Code Family History Family History: Hypertension. denies: CAD, DM, Malignancy Parental Family History Reviewed: Yes Children Family History Reviewed: NA Sibling(s) Family History Reviewed.: NA Medication/Allergy Home Medications: Alfuzosin HCl [Alfuzosin HCl ER] 10 mg PO DAILY 05/12/20 Omeprazole 20 mg PO Q6AM 05/12/20 Telmisartan 40 mg PO DAILY 05/12/20 Allergies/Adverse Reactions: ciprofloxacin [From Cipro] Allergy (Intermediate, Verified 05/11/20 19:23) Generalized rash Penicillins Allergy (Intermediate, Verified 05/11/20 19:23) Generalized rash Sulfa (Sulfonamide Antibiotics) Allergy (Intermediate, Verified 05/11/20 19:23) Generalized rash Review of Systems Constitutional: PRESENT: fatigue. ABSENT: fever(s) Eyes: ABSENT: visual disturbances Ears: ABSENT: hearing changes Nose, Mouth, and Throat: ABSENT: headache(s) Cardiovascular: ABSENT: chest pain Respiratory: ABSENT: dyspnea Gastrointestinal: PRESENT: diarrhea, nausea. ABSENT: vomiting Genitourinary: ABSENT: dysuria Musculoskeletal: ABSENT: back pain Integumentary: ABSENT: diaphoresis Neurological: ABSENT: dizziness Psychiatric: ABSENT: anxiety Endocrine: ABSENT: polyuria Physical Exam Vital Signs: Temp Pulse Resp BP Pulse Ox 99.0 F 25 H 123/76 95 05/19/20 22:36 05/19/20 22:36 05/19/20 22:36 05/19/20 22:36 General appearance: PRESENT: no acute distress, cooperative Head exam: PRESENT: normocephalic Eye exam: PRESENT: EOMI Mouth exam: PRESENT: neck supple Neck exam: ABSENT: JVD Respiratory exam: PRESENT: crackles, symmetrical, unlabored. ABSENT: rhonchi, stridor, tachypnea, wheezes Cardiovascular exam: PRESENT: RRR, +S1, +S2. ABSENT: tachycardia GI/Abdominal exam: PRESENT: soft. ABSENT: rebound, rigid, tenderness Extremities exam: ABSENT: calf tenderness, pedal edema Musculoskeletal exam: PRESENT: ambulatory Neurological exam: PRESENT: alert, awake, oriented to person, oriented to place, oriented to time, oriented to situation Psychiatric exam: ABSENT: agitated, anxious Focused psych exam: ABSENT: pressured speech Skin exam: PRESENT: intact Results Laboratory Results: 05/19/20 23:31 05/20/20 01:09 05/19/20 05/20/20 05/20/20 23:31 01:09 01:09 WBC 6.5 RBC 5.06 Hgb 15.7 Hct 44.4 MCV 88 MCH 30.9 MCHC 35.3 RDW 13.8 Plt Count 280 Seg Neutrophils % 82.3 H VBG pH 7.49 H VBG pCO2 32.1 L VBG HCO3 24.0 VBG Base Excess 1.5 Sodium 133.7 L Potassium 5.1 H Chloride 103 Carbon Dioxide 21 L Anion Gap 10 BUN 26 H Creatinine 0.89 Est GFR ( Amer) > 60 Glucose 109 Calcium 8.8 Total Bilirubin 1.2 AST 37 Alkaline Phosphatase 56 Total Protein 6.5 Albumin 3.5 05/20/20 01:09 Troponin I 0.025 NT-Pro-B Natriuret Pep 67 Impressions: Chest X-Ray 05/19/20 22:54 IMPRESSION: Mild progressive patchy interstitial and alveolar space disease right lung. Assessment and Plan - Diagnosis (1) Pneumonia due to COVID-19 virus Is this a current diagnosis for this admission?: Yes Plan: In patient's recent hospitalization, he completed treatment with 5 days of Remdesivir, 5 days of azithromycin. He also received ceftriaxone notably for about 5 to 6 days. Chest x-ray currently shows bilateral infiltrates consistent with COVID-19 pneumonia. Still remains hypoxic notably 82% on room air on initial presentation. Currently saturating in the low to mid 90s on [address] I [address] an order for covalescent plasma which our blood bank has confirmed is available. Decadron IV 6 mg daily Zinc and vitamin supplements. Supportive care. Inflammatory markers ordered (2) Acute respiratory failure with hypoxia Is this a current diagnosis for this admission?: Yes Plan: Secondary to COVID-19 pneumonia. Plan as per #1 (3) Hypertension Qualifiers: Hypertension type: essential hypertension Qualified Code(s): I10 - Essential (primary) hypertension Is this a current diagnosis for this admission?: Yes Plan: Takes telmisartan at home. We will substitute with losartan. Monitor potassium level as patient has mild hyperkalemia likely secondary to his recent treatments with Remdesivir. (4) Prediabetes Is this a current diagnosis for this admission?: Yes Plan: [place] carb restricted diet (5) Obesity (BMI 30-39.9) Is this a current diagnosis for this admission?: Yes - Time Time Spent with patient: 25-34 minutes Anticipated Discharge Disposition: Home, Self Care Anticipated Discharge Timeframe: undetermined
[2020-05-20] MEDS ORDERED: IPRATROPIUM/ALBUTEROL 0.5-2.5 MG/3 ML AMPUL NEB PRN (07:54)
--- NOTE | 2020-05-20 09:10 | EKG REPORT ---
SEVERITY:- NORMAL ECG - SINUS RHYTHM : Confirmed by: Ling Quiles MD 20-May-2020 09:10:16
[2020-05-20] MEDS: IPRATROPIUM/ALBUTEROL 0.5-2.5 MG/3 ML AMPUL NEB SCH ×3 (09:29→20:33)
[2020-05-20] MEDS: LOSARTAN POTASSIUM 50 MG TABLET PO SCH (10:09)
[2020-05-20] MEDS: FAMOTIDINE 20 MG TABLET PO SCH ×2 (10:09→21:13)
[2020-05-20] MEDS: CHOLECALCIFEROL (D3) 1,000 UNIT (25 MCG) TABLET PO SCH (10:09)
[2020-05-20] MEDS: DEXAMETHASONE SOD PHOS INJ 10 MG/1 ML VIAL IV SCH (10:10)
[2020-05-20] MEDS: ENOXAPARIN SODIUM INJ 40 MG/0.4 ML DISP.SYRIN SUBCUT SCH (10:11)
[2020-05-20] MEDS: ZINC SULFATE 220 MG CAPSULE PO SCH (10:28)
[2020-05-20] MEDS: ASCORBIC ACID 500 MG TABLET PO SCH (10:28)
[2020-05-20] MEDS: ASPIRIN 81 MG TABLET, CHEWABLE PO SCH (17:37)
[2020-05-20] MEDS: ATORVASTATIN CALCIUM 40 MG TABLET PO SCH (21:13)
[2020-05-21 06:45] LABS: ABSOLUTE EOSINOPHILS # (AUTO) 0.1 10^3/uL (0.0-0.6); ABSOLUTE LYMPHOCYTES (AUTO) 0.6 10^3/uL (0.5-4.7); ABSOLUTE MONOCYTES (AUTO) 0.6 10^3/uL (0.1-1.4); ABSOLUTE NEUT (AUTO) 6.1 10^3/uL (1.7-8.2); BASOPHILS % (AUTO) 0.3 % (0-2); EOSINOPHILS % (AUTO) 1.5 % (0-6); HEMATOCRIT 42.1 % (37.9-51.0); HEMOGLOBIN 14.6 g/dL (13.5-17.0); LYMPHOCYTES % (AUTO) 7.5 % (13-45); MEAN CORPUSCULAR HEMOGLOBIN 30.1 pg (27.0-33.4); MEAN CORPUSCULAR HGB CONC 34.7 g/dL (32.0-36.0); MEAN CORPUSCULAR VOLUME 87 fl (80-97); MONOCYTES % (AUTO) 7.8 % (3-13); PLATELET COUNT 268 10^3/uL (150-450); RED BLOOD COUNT 4.86 10^6/uL (4.35-5.55); RED CELL DISTRIBUTION WIDTH 13.5 % (11.5-14.0); SEGMENTED NEUTROPHILS % (AUTO) 82.9 % (42-78); TOTAL CELLS COUNTED % (AUTO) 100 %; WHITE BLOOD COUNT 7.4 10^3/uL (4.0-10.5)
[2020-05-21 07:12] LABS: ALBUMIN 3.3 g/dL (3.5-5.0); ALKALINE PHOSPHATASE 50 U/L (38-126); ANION GAP 8 (5-19); ASPARTATE AMINO TRANSFERASE 39 U/L (17-59); BILIRUBIN,DIRECT 0.4 mg/dL (0.0-0.4); BILIRUBIN,TOTAL 0.9 mg/dL (0.2-1.3); BLOOD UREA NITROGEN 23 mg/dL (7-20); C-REACTIVE PROTEIN 28.2 mg/L (<10.0); CALCIUM 8.3 mg/dL (8.4-10.2); CARBON DIOXIDE 26 mmol/L (22-30); CHLORIDE 100 mmol/L (98-107); GLUCOSE 106 mg/dL (75-110); POTASSIUM 4.7 mmol/L (3.6-5.0); TOTAL PROTEIN 6.1 g/dL (6.3-8.2)
[2020-05-21] MEDS: IPRATROPIUM/ALBUTEROL 0.5-2.5 MG/3 ML AMPUL NEB SCH ×3 (07:32→19:46)
[2020-05-21] MEDS: FAMOTIDINE 20 MG TABLET PO SCH ×2 (09:49→21:42)
[2020-05-21] MEDS: ASCORBIC ACID 500 MG TABLET PO SCH (09:49)
[2020-05-21] MEDS: ASPIRIN 81 MG TABLET, CHEWABLE PO SCH (09:49)
[2020-05-21] MEDS: CHOLECALCIFEROL (D3) 1,000 UNIT (25 MCG) TABLET PO SCH (09:49)
[2020-05-21] MEDS: DEXAMETHASONE SOD PHOS INJ 10 MG/1 ML VIAL IV SCH (09:49)
[2020-05-21] MEDS: LOSARTAN POTASSIUM 50 MG TABLET PO SCH (09:49)
[2020-05-21] MEDS: ENOXAPARIN SODIUM INJ 40 MG/0.4 ML DISP.SYRIN SUBCUT SCH (09:49)
[2020-05-21] MEDS: ZINC SULFATE 220 MG CAPSULE PO SCH (09:49)
--- NOTE | 2020-05-21 10:56 | PDOC PROGRESS REPORT ---
Subjective Progress Note for:: 05/21/20 Subjective:: TANYA MONCADA is a 50 year old male who was recently hospitalized for COVID pneumonia as well as hypoxia. He had been treated with Remdesivir, ceftriaxone, azithromycin as well as steroids. However, he left AGAINST MEDICAL ADVICE this morning despite being hypoxic. States he felt well when he got home but his mother urged him to come back to the hospital after noting that he was hypoxic on pulse oximetry. He states he continues to experience fatigue and diarrhea. He however denies feeling shortness of breath notably. Denies any chest pain. Denies having any fevers since he got home. Occasionally gets nauseous but denies any vomiting currently. Denies history of COPD or asthma. 05/21/2019. No acute events overnight. Patient currently resting in his recliner no apparent distress, reporting mild fatigue since receiving effervescent plasma, denies any fever, chills, nausea, vomiting. PO2 WNL on 2.5 L nasal cannula. Reason For Visit: COVID PNEUMONIA Physical Exam Vital Signs: Temp Pulse Resp BP Pulse Ox 98.1 F 80 16 127/89 H 98 05/21/20 07:18 05/21/20 07:32 05/21/20 07:32 05/21/20 07:18 05/21/20 07:32 Intake & Output 05/20/20 05/21/20 05/22/20 06:59 06:59 06:59 Intake Total 772 Balance 772 Weight 102.05 kg General appearance: PRESENT: no acute distress, obese, well-developed, well- nourished Head exam: PRESENT: atraumatic, normocephalic Respiratory exam: PRESENT: clear to auscultation too. ABSENT: rales, rhonchi, wheezes Cardiovascular exam: PRESENT: RRR. ABSENT: diastolic murmur, rubs, systolic murmur GI/Abdominal exam: PRESENT: normal bowel sounds, soft. ABSENT: distended, guarding, mass, organolmegaly, rebound, tenderness Extremities exam: PRESENT: full ROM. ABSENT: calf tenderness, clubbing, pedal edema Neurological exam: PRESENT: alert, awake, oriented to person, oriented to place, oriented to time, oriented to situation, CN II-XII grossly intact. ABSENT: motor sensory deficit Results Laboratory Results: 05/21/20 05:40 05/21/20 05:40 05/21/20 05/21/20 05:40 05:40 WBC 7.4 RBC 4.86 Hgb 14.6 Hct 42.1 MCV 87 MCH 30.1 MCHC 34.7 RDW 13.5 Plt Count 268 Seg Neutrophils % 82.9 H Sodium 133.7 L Potassium 4.7 Chloride 100 Carbon Dioxide 26 Anion Gap 8 BUN 23 H Creatinine 0.84 Est GFR ( Amer) > 60 Glucose 106 Calcium 8.3 L Total Bilirubin 0.9 AST 39 Alkaline Phosphatase 50 C-Reactive Protein 28.2 H Total Protein 6.1 L Albumin 3.3 L 05/20/20 05/20/20 05/20/20 01:09 06:55 17:10 Troponin I 0.025 0.024 0.024 NT-Pro-B Natriuret Pep 67 Impressions: Chest X-Ray 05/19/20 22:54 IMPRESSION: Mild progressive patchy interstitial and alveolar space disease right lung. Assessment and Plan - Diagnosis (1) Pneumonia due to COVID-19 virus Is this a current diagnosis for this admission?: Yes Plan: In patient's recent hospitalization, he completed treatment with 5 days of Remdesivir, 5 days of azithromycin. He also received ceftriaxone notably for about 5 to 6 days. Chest x-ray currently shows bilateral infiltrates consistent with COVID-19 pneumonia. Still remains hypoxic notably 82% on room air on initial presentation. SPO2 WNL on 3.5 L nasal cannula. Status post convalescent plasma transfusion on 05/20/2020. Continue Decadron IV 6 mg daily duo nebs, as needed BiPAP, zinc and vitamin supplements. (2) Acute respiratory failure with hypoxia Is this a current diagnosis for this admission?: Yes Plan: Secondary to COVID-19 pneumonia. Plan as per #1 (3) Prediabetes Is this a current diagnosis for this admission?: Yes Plan: Hemoglobin A1c 6.2. Family history of diabetes. Patient extensively advised on diet and lifestyle modification. We will consult dietitian for diabetic education. Outpatient PCP follow-up. Patient may benefit from Metformin as outpatient. (4) Hypertension Qualifiers: Hypertension type: essential hypertension Qualified Code(s): I10 - Essential (primary) hypertension Is this a current diagnosis for this admission?: Yes Plan: Takes telmisartan at home. We will substitute with losartan. Monitor potassium level as patient has mild hyperkalemia likely secondary to his recent treatments with Remdesivir. (5) Obesity (BMI 30-39.9) Is this a current diagnosis for this admission?: Yes Plan: BMI 33.2. Hemoglobin is 6.2. TSH WNL. Lipid panel WNL. Diet and lifestyle modification recommended. (6) Elevated troponin Is this a current diagnosis for this admission?: Yes Plan: High risk for CAD given history of hypertension, obesity, and prediabetes. Denies any history of CAD. Denies any anginal symptoms. Likely due to mismatch demand due to acute respiratory failure caused by COVID- 19 pneumonia. Continue telemetry, antiplatelets, statins, REJI, beta-blockers. We will consult cardiology for further recommendation. - Time Time Spent with patient: 35 or more minutes Medications reviewed and adjusted accordingly: Yes Anticipated Discharge Disposition: Home, Self Care Anticipated Discharge Timeframe: within 48 hours
[2020-05-21 11:20] LABS: APPEARANCE,URINE CLEAR; BILIRUBIN,URINE NEGATIVE (NEGATIVE); COLOR,URINE YELLOW; GLUCOSE, URINE NEGATIVE (NEGATIVE); KETONES,URINE NEGATIVE (NEGATIVE); LEUKOCYTE ESTERASE,URINE NEGATIVE (NEGATIVE); NITRITE,URINE NEGATIVE (NEGATIVE); PROTEIN,URINE NEGATIVE (NEGATIVE); URINE SPECIFIC GRAVITY 1.026; UROBILINOGEN,URINE NEGATIVE mg/dL (<2.0)
[2020-05-21] MEDS ORDERED: ONDANSETRON HCL INJ/PF 4 MG/2 ML SDV IV PRN (13:00)
[2020-05-21] MEDS ORDERED: ACETAMINOPHEN 325 MG TABLET PO PRN (13:00)
--- NOTE | 2020-05-21 21:30 | RADIOLOGY REPORT (SQ) ---
EXAM DESCRIPTION: US EXTREMITY VEINS UNILATERAL COMPLETED DATE/TME: 05/21/2020 00:00 CLINICAL HISTORY: 50 years, Male, left calf pain. r/o dvt. COMPARISON: EXAM DESCRIPTION: CLINICAL HISTORY: 50 years Male left calf pain. r/o dvt. COMPARISON: None. TECHNIQUE: Duplex and color Doppler imaging performed to evaluate the extremity deep venous structures. Compression imaging and augmentation imaging performed. FINDINGS: No thrombus is identified in the deep venous structures imaged. There is normal flow, compressibility, and augmentation throughout. EXAM DESCRIPTION: CLINICAL HISTORY: 50 years Male left calf pain. r/o dvt. COMPARISON: None. TECHNIQUE: Duplex and color Doppler imaging performed to evaluate the extremity deep venous structures. Compression imaging and augmentation imaging performed. FINDINGS: There is noncompressible likely acute thrombus in the left gastrocnemius, posterior tibial and peroneal veins. Very little flow is seen in these vessels on Doppler imaging. No additional thrombus is identified in the deep venous structures imaged. Impression: There is acute appearing venous thrombosis as above. Patient's nurse was given preliminary results.
[2020-05-21] MEDS: ATORVASTATIN CALCIUM 40 MG TABLET PO SCH (21:42)
[2020-05-21] MEDS: ENOXAPARIN SODIUM INJ 100 MG/1 ML DISP.SYRIN SUBCUT SCH (21:42)
[2020-05-22 05:54] LABS: HEMATOCRIT 40.5 % (37.9-51.0); HEMOGLOBIN 14.1 g/dL (13.5-17.0); MEAN CORPUSCULAR HEMOGLOBIN 29.9 pg (27.0-33.4); MEAN CORPUSCULAR HGB CONC 34.8 g/dL (32.0-36.0); MEAN CORPUSCULAR VOLUME 86 fl (80-97); PLATELET COUNT 250 10^3/uL (150-450); RED BLOOD COUNT 4.72 10^6/uL (4.35-5.55); RED CELL DISTRIBUTION WIDTH 13.3 % (11.5-14.0)
[2020-05-22 06:11] LABS: ANION GAP 10 (5-19); BLOOD UREA NITROGEN 14 mg/dL (7-20); CALCIUM 8.2 mg/dL (8.4-10.2); CARBON DIOXIDE 20 mmol/L (22-30); CHLORIDE 104 mmol/L (98-107); GLUCOSE 176 mg/dL (75-110); POTASSIUM 4.4 mmol/L (3.6-5.0)
[2020-05-22 06:16] LABS: ABSOLUTE LYMPHOCYTES# (MANUAL) 1.4 10^3/uL (0.5-4.7); ABSOLUTE MONOCYTES # (MANUAL) 0.5 10^3/uL (0.1-1.4); BASOPHILS % (MANUAL) 0 % (0-2); EOSINOPHILS % (MANUAL) 0 % (0-6); LYMPHOCYTES % (MANUAL) 18 % (13-45); MONOCYTES % (MANUAL) 6 % (3-13); POIKILOCYTOSIS SLIGHT; SEGMENTED NEUTROPHILS % (MAN) 76 % (42-78); TOTAL CELLS COUNTED 100; TOXIC GRANULATION SLIGHT
[2020-05-22 06:17] LABS: OVALOCYTES SLIGHT; PLATELET COMMENT ADEQUATE
[2020-05-22] MEDS: IPRATROPIUM/ALBUTEROL 0.5-2.5 MG/3 ML AMPUL NEB SCH ×3 (08:49→19:41)
[2020-05-22] MEDS: ASCORBIC ACID 500 MG TABLET PO SCH (09:38)
[2020-05-22] MEDS: FAMOTIDINE 20 MG TABLET PO SCH ×2 (09:38→21:40)
[2020-05-22] MEDS: CHOLECALCIFEROL (D3) 1,000 UNIT (25 MCG) TABLET PO SCH (09:39)
[2020-05-22] MEDS: ASPIRIN 81 MG TABLET, CHEWABLE PO SCH (09:40)
[2020-05-22] MEDS: ZINC SULFATE 220 MG CAPSULE PO SCH (09:40)
[2020-05-22] MEDS: LOSARTAN POTASSIUM 50 MG TABLET PO SCH (09:40)
[2020-05-22] MEDS: ENOXAPARIN SODIUM INJ 100 MG/1 ML DISP.SYRIN SUBCUT SCH ×2 (09:42→21:40)
[2020-05-22] MEDS: DEXAMETHASONE SOD PHOS INJ 10 MG/1 ML VIAL IV SCH (09:42)
--- NOTE | 2020-05-22 12:52 | PDOC PROGRESS REPORT ---
Subjective Progress Note for:: 05/22/20 Subjective:: TANYA MONCADA is a 50 year old male who was recently hospitalized for COVID pneumonia as well as hypoxia. He had been treated with Remdesivir, ceftriaxone, azithromycin as well as steroids. However, he left AGAINST MEDICAL ADVICE this morning despite being hypoxic. States he felt well when he got home but his mother urged him to come back to the hospital after noting that he was hypoxic on pulse oximetry. He states he continues to experience fatigue and diarrhea. He however denies feeling shortness of breath notably. Denies any chest pain. Denies having any fevers since he got home. Occasionally gets nauseous but denies any vomiting currently. Denies history of COPD or asthma. 05/21/2019. No acute events overnight. Patient currently resting in his recliner no apparent distress, reporting mild fatigue since receiving effervescent plasma, denies any fever, chills, nausea, vomiting. PO2 WNL on 2.5 L nasal cannula. 05/22/2020. No acute events overnight. Patient comfortably stable no apparent distress, oxygen requirement has been decreasing, currently on 3 L nasal cannula SPO2 WNL, denies any fever, chills, nausea, vomiting, diarrhea, constipation or any urinary symptoms. Unfortunate patient has left lower leg DVT. Reason For Visit: COVID PNEUMONIA Physical Exam Vital Signs: Temp Pulse Resp BP Pulse Ox 97.7 F 83 18 115/72 95 05/22/20 11:58 05/22/20 11:58 05/22/20 11:58 05/22/20 11:58 05/22/20 11:58 Intake & Output 05/21/20 05/22/20 05/23/20 06:59 06:59 06:59 Intake Total 772 828 Balance 772 828 Weight 102.05 kg General appearance: PRESENT: no acute distress, obese, well-developed, well- nourished Head exam: PRESENT: atraumatic, normocephalic Neck exam: ABSENT: carotid bruit, JVD, lymphadenopathy, thyromegaly Respiratory exam: PRESENT: clear to auscultation too. ABSENT: rales, rhonchi, wheezes Pulses: PRESENT: normal dorsalis pedis pul GI/Abdominal exam: PRESENT: normal bowel sounds, soft. ABSENT: distended, guarding, mass, organolmegaly, rebound, tenderness Musculoskeletal exam: PRESENT: tenderness - Left ankle. Neurovascularly intact. No erythema or sign of infection. Neurological exam: PRESENT: alert, awake, oriented to person, oriented to place, oriented to time, oriented to situation, CN II-XII grossly intact. ABSENT: motor sensory deficit Results Laboratory Results: 05/22/20 04:36 05/22/20 04:36 05/22/20 05/22/20 04:36 04:36 WBC 8.0 RBC 4.72 Hgb 14.1 Hct 40.5 MCV 86 MCH 29.9 MCHC 34.8 RDW 13.3 Plt Count 250 Seg Neutrophils % Not Reportable Sodium 133.9 L Potassium 4.4 Chloride 104 Carbon Dioxide 20 L Anion Gap 10 BUN 14 Creatinine 0.67 Est GFR ( Amer) > 60 Glucose 176 H Calcium 8.2 L Magnesium 2.2 C-Reactive Protein 21.0 H 05/20/20 05/20/20 05/20/20 01:09 06:55 17:10 Troponin I 0.025 0.024 0.024 NT-Pro-B Natriuret Pep 67 Impressions: Chest X-Ray 05/19/20 22:54 IMPRESSION: Mild progressive patchy interstitial and alveolar space disease right lung. Assessment and Plan - Diagnosis (1) Pneumonia due to COVID-19 virus Is this a current diagnosis for this admission?: Yes Plan: Moderate improvement. SPO2 WNL on 2 to 3 L nasal cannula. Afebrile. WBC WNL. In patient's recent hospitalization, he completed treatment with 5 days of Remdesivir, 5 days of azithromycin. He also received ceftriaxone notably for about 5 to 6 days. Chest x-ray currently shows bilateral infiltrates consistent with COVID-19 pneumonia. Status post convalescent plasma transfusion on 05/20/2020. Continue Decadron IV 6 mg daily duo nebs, as needed BiPAP, zinc and vitamin supplements. Possible discharge home tomorrow if patient can be weaned off of oxygen vitals are stable. (2) Acute respiratory failure with hypoxia Is this a current diagnosis for this admission?: Yes Plan: Secondary to COVID-19 pneumonia. Plan as per #1 (3) Prediabetes Is this a current diagnosis for this admission?: Yes Plan: Hemoglobin A1c 6.2. Family history of diabetes. Patient extensively advised on diet and lifestyle modification. We will consult dietitian for diabetic education. Outpatient PCP follow-up. Patient may benefit from Metformin as outpatient. (4) Hypertension Qualifiers: Hypertension type: essential hypertension Qualified Code(s): I10 - Essential (primary) hypertension Is this a current diagnosis for this admission?: Yes Plan: Takes telmisartan at home. We will substitute with losartan. Monitor potassium level as patient has mild hyperkalemia likely secondary to his recent treatments with Remdesivir. (5) Obesity (BMI 30-39.9) Is this a current diagnosis for this admission?: Yes Plan: BMI 33.2. Hemoglobin is 6.2. TSH WNL. Lipid panel WNL. Diet and lifestyle modification recommended. (6) Elevated troponin Is this a current diagnosis for this admission?: Yes Plan: Troponins trending down. Denies any anginal symptoms. High risk for CAD given history of hypertension, obesity, and prediabetes. Denies any history of CAD. Denies any anginal symptoms. Likely due to mismatch demand due to acute respiratory failure caused by COVID- 19 pneumonia. Continue telemetry, antiplatelets, statins, REJI, beta-blockers. Trend troponins. Have discussed the case with Dr. Garrido who believes that elevated troponins are most likely due to demand mismatch and he does not need a cardiology consultation. Will DC cardiac consultation. If he develops any anginal symptoms we will reconsult cardiology. (7) DVT (deep venous thrombosis) Qualifiers: Affected thrombotic vein of extremity: unspecified lower extremity distal vein Chronicity: acute Laterality: left Is this a current diagnosis for this admission?: Yes Plan: This is likely due to COVID-19 infection. Of note patient left AMA and was readmitted to [facility] on same day however he refused his Lovenox on the first day. Vitals are stable, SPO2 WNL on 2-3 L, denies any anginal symptoms. Continue therapeutic dose Lovenox. Can be switched to oral anticoagulant upon discharge. If hypoxia does not improve may consider CTA chest. Monitor vitals. - Time Time Spent with patient: 25-34 minutes Medications reviewed and adjusted accordingly: Yes Anticipated Discharge Disposition: Home, Self Care Anticipated Discharge Timeframe: within 24 hours
[2020-05-22] MEDS: ATORVASTATIN CALCIUM 40 MG TABLET PO SCH (21:40)
[2020-05-23 05:30] LABS: HEMATOCRIT 41.6 % (37.9-51.0); HEMOGLOBIN 14.5 g/dL (13.5-17.0); MEAN CORPUSCULAR HEMOGLOBIN 30.1 pg (27.0-33.4); MEAN CORPUSCULAR HGB CONC 34.7 g/dL (32.0-36.0); MEAN CORPUSCULAR VOLUME 87 fl (80-97); PLATELET COUNT 285 10^3/uL (150-450); RED CELL DISTRIBUTION WIDTH 13.5 % (11.5-14.0); WHITE BLOOD COUNT 10.9 10^3/uL (4.0-10.5)
[2020-05-23 05:52] LABS: ANION GAP 12 (5-19); BLOOD UREA NITROGEN 17 mg/dL (7-20); C-REACTIVE PROTEIN 14.2 mg/L (<10.0); CALCIUM 8.5 mg/dL (8.4-10.2); CARBON DIOXIDE 22 mmol/L (22-30); CHLORIDE 100 mmol/L (98-107); GLUCOSE 130 mg/dL (75-110); POTASSIUM 4.3 mmol/L (3.6-5.0)
[2020-05-23] MEDS: IPRATROPIUM/ALBUTEROL 0.5-2.5 MG/3 ML AMPUL NEB SCH ×3 (08:27→20:25)
[2020-05-23 09:07] LABS: APPEARANCE,URINE CLEAR; BILIRUBIN,URINE NEGATIVE (NEGATIVE); COLOR,URINE YELLOW; GLUCOSE, URINE NEGATIVE (NEGATIVE); KETONES,URINE NEGATIVE (NEGATIVE); LEUKOCYTE ESTERASE,URINE NEGATIVE (NEGATIVE); NITRITE,URINE NEGATIVE (NEGATIVE); PROTEIN,URINE NEGATIVE (NEGATIVE); URINE SPECIFIC GRAVITY 1.016; UROBILINOGEN,URINE NEGATIVE mg/dL (<2.0)
[2020-05-23] MEDS: ASCORBIC ACID 500 MG TABLET PO SCH (09:26)
[2020-05-23] MEDS: ASPIRIN 81 MG TABLET, CHEWABLE PO SCH (09:26)
[2020-05-23] MEDS: CHOLECALCIFEROL (D3) 1,000 UNIT (25 MCG) TABLET PO SCH (09:26)
[2020-05-23] MEDS: LOSARTAN POTASSIUM 50 MG TABLET PO SCH (09:27)
[2020-05-23] MEDS: ENOXAPARIN SODIUM INJ 100 MG/1 ML DISP.SYRIN SUBCUT SCH ×2 (09:28→21:15)
[2020-05-23] MEDS: FAMOTIDINE 20 MG TABLET PO SCH ×2 (09:28→21:15)
[2020-05-23] MEDS: DEXAMETHASONE SOD PHOS INJ 10 MG/1 ML VIAL IV SCH (09:28)
[2020-05-23] MEDS: ZINC SULFATE 220 MG CAPSULE PO SCH (09:28)
--- NOTE | 2020-05-23 11:18 | RADIOLOGY REPORT (SQ) ---
EXAM DESCRIPTION: CTA CHEST IMAGES COMPLETED DATE/TIME: 05/23/2020 10:21 am REASON FOR STUDY: hypoxia, LLE DVT COMPARISON: Chest x-ray dated 05/19/2020 TECHNIQUE: CT scan of the chest performed using helical scanning technique with dynamic intravenous contrast injection. Images reviewed with lung, soft tissue and bone windows. Reconstructed coronal and sagittal MPR images reviewed. Additional 3 dimensional post-processing performed to develop Maximal Intensity Projection images (IN P). All images stored on PACS. All CT scanners at this facility use dose modulation, iterative reconstruction, and/or weight based d osing when appropriate to reduce radiation dose to as low as reasonably achievable (ALARA). [facility]: Dose Right [facility]: CareDose [facility]: Dose Right [facility]: Teradose 4D [facility]: Novatek CONTRAST TYPE AND DOSE: contrast/concentration: Isovue mmol/ml; Total Contrast Delivered: 70.0 ml; Total Saline Delivered: 46.0 ml Contrast bolus adequate for pulmonary arteries and aorta. RENAL FUNCTION: BUN 17, creatinine 0.77 RADIATION DOSE: CT Rad equipment meets quality standard of care and radiation dose reduction techniq ues were employed. CTDIvol: 9.9 - 27.7 mGy. DLP: 1080 mGy-cm. . LIMITATIONS: None. FINDINGS: LUNGS AND PLEURA: Diffuse bilateral airspace disease with a slightly more prominent periph eral distribution consistent with a history of code. There is involvement of both the upper and lowe r lobes. There is central involvement as well. AORTA AND GREAT VESSELS: No aneurysm dissection. Focal filling defect in the aortic arch consistent with mural thrombus. This arises just distal to the takeoff of the left subclavian artery. HEART: No pericardial effusion. No significant coronary artery calcifications. PULMONARY ARTERIES: Small segmental and sub segmental pulmonary emboli in both lower lobes. HILAR AND MEDIASTINAL STRUCTURES: No identified masses or abnormal nodes. HARDWARE: None in the chest. UPPER ABDOMEN: No significant findings. Limited exam. THYROID AND OTHER SOFT TISSUES: No masses. No adenopathy. BONES: No acute or significant finding. 3D MIPS: Confirm above findings. OTHER: No other significant finding. IMPRESSION: 1. Small segmental and sub segmental emboli bilaterally. 2. Diffuse bilateral airspace disease more marked in the lung periphery as discussed above. There i s central involvement as well. 3. Finger like mural thrombus in the aortic arch. This appears to be adherent to the ventral aspect of the aortic arch. It arises just distal to the takeoff of the left subclavian artery. COMMENT: Quality ID # [id number]: Final reports with documentation of one or more dose reduction techniques (e.g., Automated exposure control, adjustment of the mA and/or kV according to patient size, use of iterative reconstruction technique) TECHNICAL DOCUMENTATION: JOB ID: [id number] 2010 [employer]- All Rights Reserved Reading location - IP/workstation name: [email or web address]
--- NOTE | 2020-05-23 15:50 | PDOC PROGRESS REPORT ---
Subjective Progress Note for:: 05/23/20 Subjective:: No adverse events overnight. No new complaints. He is comfortable on room air. He said he rests more comfortably if he is sitting up in a recliner. Reason For Visit: COVID PNEUMONIA Physical Exam Vital Signs: Temp Pulse Resp BP Pulse Ox 99.0 F 76 18 139/85 H 93 05/23/20 10:00 05/23/20 14:00 05/23/20 14:00 05/23/20 08:39 05/23/20 14:00 Intake & Output 05/22/20 05/23/20 05/24/20 06:59 06:59 06:59 Intake Total 828 645 Output Total 650 Balance 828 -5 General appearance: PRESENT: no acute distress, cooperative, obese Respiratory exam: PRESENT: clear to auscultation too, symmetrical, unlabored. ABSENT: accessory muscle use, chest wall tenderness, crackles, prolonged expira tory phas, rhonchi, tachypnea, wheezes Cardiovascular exam: PRESENT: RRR, +S1, +S2 Pulses: PRESENT: normal carotid pulses Vascular exam: PRESENT: normal capillary refill GI/Abdominal exam: PRESENT: normal bowel sounds, soft. ABSENT: distended, guarding, rebound, tenderness Extremities exam: ABSENT: clubbing, pedal edema Musculoskeletal exam: PRESENT: normal inspection. ABSENT: deformity Neurological exam: PRESENT: alert, awake, oriented to person, oriented to place, oriented to situation Psychiatric exam: PRESENT: appropriate affect, normal mood Skin exam: PRESENT: dry, warm Results Laboratory Results: 05/23/20 04:14 05/23/20 04:14 05/23/20 05/23/20 05/23/20 04:14 04:14 08:25 WBC 10.9 H RBC 4.80 Hgb 14.5 Hct 41.6 MCV 87 MCH 30.1 MCHC 34.7 RDW 13.5 Plt Count 285 Sodium 134.0 L Potassium 4.3 Chloride 100 Carbon Dioxide 22 Anion Gap 12 BUN 17 Creatinine 0.77 Est GFR ( Amer) > 60 Glucose 130 H Calcium 8.5 C-Reactive Protein 14.2 H Urine Color YELLOW Urine Appearance CLEAR Urine pH 6.0 Ur Specific [place] 1.016 Urine Protein NEGATIVE Urine Glucose (UA) NEGATIVE Urine Ketones NEGATIVE Urine Blood NEGATIVE Urine Nitrite NEGATIVE Ur Leukocyte Esterase NEGATIVE Urine WBC (Auto) 0 Urine RBC (Auto) 1 05/20/20 05/20/20 05/20/20 01:09 06:55 17:10 Troponin I 0.025 0.024 0.024 NT-Pro-B Natriuret Pep 67 Impressions: Chest X-Ray 05/19/20 22:54 IMPRESSION: Mild progressive patchy interstitial and alveolar space disease right lung. Chest/Abdomen CTA 05/23/20 00:00 IMPRESSION: 1. Small segmental and sub segmental emboli bilaterally. 2. Diffuse bilateral airspace disease more marked in the lung periphery as discussed above. There is central involvement as well. 3. Finger like mural thrombus in the aortic arch. This appears to be adherent to the ventral aspect of the aortic arch. It arises just distal to the takeoff of the left subclavian artery. Assessment and Plan - Diagnosis (1) Bilateral pulmonary embolism Is this a current diagnosis for this admission?: Yes (2) DVT (deep venous thrombosis) Qualifiers: Affected thrombotic vein of extremity: unspecified lower extremity distal vein Chronicity: acute Laterality: left Is this a current diagnosis for this admission?: Yes (3) Elevated troponin Is this a current diagnosis for this admission?: Yes (4) Acute respiratory failure with hypoxia Is this a current diagnosis for this admission?: Yes (5) Hypertension Qualifiers: Hypertension type: essential hypertension Qualified Code(s): I10 - Essential (primary) hypertension Is this a current diagnosis for this admission?: Yes (6) Obesity (BMI 30-39.9) Is this a current diagnosis for this admission?: Yes - Plan Summary Summary: He is on treatment dose Lovenox. We should be able to switch him to Eliquis at discharge. He will need this for a total of 6 months. I think that this and not his recent bout of coronavirus was the cause of his hypoxemia and his initial presentation. He completed treatment for coronavirus before he left AGAINST MEDICAL ADVICE during his last hospitalization. He is currently on room air. If he has a good night tonight he can be discharged home in the morning. - Time Time Spent with patient: 15-24 minutes Anticipated Discharge Disposition: Home, Self Care Anticipated Discharge Timeframe: within 24 hours
[2020-05-23] MEDS: ATORVASTATIN CALCIUM 40 MG TABLET PO SCH (21:15)
[2020-05-24 05:44] LABS: HEMATOCRIT 41.9 % (37.9-51.0); HEMOGLOBIN 14.8 g/dL (13.5-17.0); MEAN CORPUSCULAR HEMOGLOBIN 30.5 pg (27.0-33.4); MEAN CORPUSCULAR HGB CONC 35.2 g/dL (32.0-36.0); MEAN CORPUSCULAR VOLUME 87 fl (80-97); PLATELET COUNT 267 10^3/uL (150-450); RED BLOOD COUNT 4.85 10^6/uL (4.35-5.55); RED CELL DISTRIBUTION WIDTH 13.6 % (11.5-14.0)
[2020-05-24 06:12] LABS: ALBUMIN 3.2 g/dL (3.5-5.0); ALKALINE PHOSPHATASE 75 U/L (38-126); ANION GAP 11 (5-19); ASPARTATE AMINO TRANSFERASE 22 U/L (17-59); BILIRUBIN,DIRECT 0.4 mg/dL (0.0-0.4); BILIRUBIN,TOTAL 0.8 mg/dL (0.2-1.3); BLOOD UREA NITROGEN 20 mg/dL (7-20); C-REACTIVE PROTEIN 17.4 mg/L (<10.0); CALCIUM 8.9 mg/dL (8.4-10.2); CARBON DIOXIDE 22 mmol/L (22-30); CHLORIDE 101 mmol/L (98-107); GLUCOSE 132 mg/dL (75-110); POTASSIUM 4.4 mmol/L (3.6-5.0); TOTAL PROTEIN 6.2 g/dL (6.3-8.2)
[2020-05-24] MEDS: IPRATROPIUM/ALBUTEROL 0.5-2.5 MG/3 ML AMPUL NEB SCH (07:46)
[2020-05-24] MEDS: LOSARTAN POTASSIUM 50 MG TABLET PO SCH (09:27)
[2020-05-24] MEDS: ASPIRIN 81 MG TABLET, CHEWABLE PO SCH (09:27)
[2020-05-24] MEDS: FAMOTIDINE 20 MG TABLET PO SCH (09:27)
[2020-05-24] MEDS: CHOLECALCIFEROL (D3) 1,000 UNIT (25 MCG) TABLET PO SCH (09:27)
[2020-05-24] MEDS: ZINC SULFATE 220 MG CAPSULE PO SCH (09:28)
[2020-05-24] MEDS: DEXAMETHASONE SOD PHOS INJ 10 MG/1 ML VIAL IV SCH (09:28)
[2020-05-24] MEDS: ASCORBIC ACID 500 MG TABLET PO SCH (09:28)
[2020-05-24] MEDS: ENOXAPARIN SODIUM INJ 100 MG/1 ML DISP.SYRIN SUBCUT SCH (09:29)
[2020-05-24 11:22] VITALS: BP 128/76
--- NOTE | 2020-05-24 15:24 | PDOC DISCHARGE SUMMARY ---
Impression - Admit/DC Date/PCP Admission Date/Primary Care Provider: 05/20/20 02:31 Discharge Date: 05/24/20 - Discharge Diagnosis (1) Bilateral pulmonary embolism Is this a current diagnosis for this admission?: Yes (2) DVT (deep venous thrombosis) Is this a current diagnosis for this admission?: Yes (3) Elevated troponin Is this a current diagnosis for this admission?: Yes (4) Acute respiratory failure with hypoxia Is this a current diagnosis for this admission?: Yes (5) Hypertension Is this a current diagnosis for this admission?: Yes (6) Obesity (BMI 30-39.9) Is this a current diagnosis for this admission?: Yes - Assessment Summary: He is on treatment dose Lovenox. We should be able to switch him to Eliquis at discharge. He will need this for a total of 6 months. I think that this and not his recent bout of coronavirus was the cause of his hypoxemia and his initial presentation. He completed treatment for coronavirus before he left AGAINST MEDICAL ADVICE during his last hospitalization. He is currently on room air. If he has a good night tonight he can be discharged home in the morning. - Additional Information Resuscitation Status: Full Code Discharge Diet: Cardiac Discharge Activity: Activity As Tolerated, Slowly Increase Activity Referrals: TYSON GUZMAN JR, MD [NO LOCAL MD] - Follow up as needed (Patient will have to make own appointment. [facility] does not allow anyone but patient to make appointment.) Prescriptions: Apixaban [Eliquis 5 mg Tablet] 5 mg PO BID #60 tablet Home Medications: Omeprazole 20 mg PO Q6AM 05/12/20 Telmisartan 40 mg PO DAILY 05/12/20 Alfuzosin HCl [Alfuzosin HCl ER] 10 mg PO DAILY 05/21/20 Apixaban [Eliquis 5 mg Tablet] 5 mg PO BID #60 tablet 05/24/20 History of Present Illiness History of Present Illness: TANYA MONCADA is a 50 year old male who was recently hospitalized for COVID pneumonia as well as hypoxia. He had been treated with Remdesivir, ceftriaxone, azithromycin as well as steroids. However, he left AGAINST MEDICAL ADVICE this morning despite being hypoxic. States he felt well when he got home but his mother urged him to come back to the hospital after noting that he was hypoxic on pulse oximetry. He states he continues to experience fatigue and diarrhea. He however denies feeling shortness of breath notably. Denies any chest pain. Denies having any fevers since he got home. Occasionally gets nauseous but denies any vomiting currently. Denies history of COPD or asthma. Hospital Course Hospital Course: This patient had completed his treatment for COVID-19 whenever he left AMA previously. I do not think that this admission had anything to do with COVID. He came back to the hospital because his pulse oximetry at home was low on room air. He had some leg swelling here and was found to have a DVT. I checked a CTA of his chest and found that he had bilateral pulmonary emboli. He had been treated with anticoagulation and was able to be weaned down to room air. He has bilateral pulmonary emboli and a DVT, so he will be treated with Eliquis for 6 months. He was advised on precautions to take while taking anticoagulants. His labs and examination were reassuring he was discharged in stable condition. Physical Exam Vital Signs: Temp Pulse Resp BP Pulse Ox 97.7 F 75 16 128/76 H 92 05/24/20 11:17 05/24/20 11:17 05/24/20 11:17 05/24/20 11:17 05/24/20 11:17 Intake & Output 05/23/20 05/24/20 05/25/20 06:59 06:59 06:59 Intake Total 645 1017 Output Total 650 Balance -5 1017 General appearance: PRESENT: no acute distress, cooperative, obese Respiratory exam: PRESENT: clear to auscultation too, symmetrical, unlabored. ABSENT: accessory muscle use, chest wall tenderness, crackles, prolonged expiratory phas, rhonchi, tachypnea, wheezes Cardiovascular exam: PRESENT: RRR, +S1, +S2 Pulses: PRESENT: normal carotid pulses Vascular exam: PRESENT: normal capillary refill GI/Abdominal exam: PRESENT: normal bowel sounds, soft. ABSENT: distended, guarding, rebound, tenderness Extremities exam: ABSENT: clubbing, pedal edema Musculoskeletal exam: PRESENT: normal inspection. ABSENT: deformity Neurological exam: PRESENT: alert, awake, oriented to person, oriented to place, oriented to situation Psychiatric exam: PRESENT: appropriate affect, normal mood Skin exam: PRESENT: dry, warm Results Laboratory Results: WBC 11.0 10^3/uL (4.0-10.5) H 10/15/20 04:27 RBC 4.85 10^6/uL (4.35-5.55) 05/24/20 04:27 Hgb 14.8 g/dL (13.5-17.0) 05/24/20 04:27 Hct 41.9 % (37.9-51.0) 05/24/20 04:27 MCV 87 fl (80-97) 05/24/20 04:27 MCH 30.5 pg (27.0-33.4) 05/24/20 04:27 MCHC 35.2 g/dL (32.0-36.0) 05/24/20 04:27 RDW 13.6 % (11.5-14.0) 05/24/20 04:27 Plt Count 267 10^3/uL (150-450) 05/24/20 04:27 Lymph % (Auto) 11.1 % (13-45) L 05/24/20 04:27 [place] % (Auto) 4.8 % (3-13) 05/24/20 04:27 Eos % (Auto) 1.4 % (0-6) 05/24/20 04:27 Baso % (Auto) 0.3 % (0-2) 05/24/20 04:27 Absolute Neuts (auto) 9.1 10^3/uL (1.7-8.2) H 05/24/20 04:27 Absolute Lymphs (auto) 1.2 10^3/uL (0.5-4.7) 05/24/20 04:27 Absolute Monos (auto) 0.5 10^3/uL (0.1-1.4) 05/24/20 04:27 Absolute Eos (auto) 0.2 10^3/uL (0.0-0.6) 05/24/20 04:27 Absolute Basos (auto) 0.0 10^3/uL (0.0-0.2) 05/24/20 04:27 Total Counted 100 05/22/20 04:36 Seg Neutrophils % 82.4 % (42-78) H 05/24/20 04:27 Seg Neuts % (Manual) 76 % (42-78) 05/22/20 04:36 Lymphocytes % (Manual) 18 % (13-45) 05/22/20 04:36 Monocytes % (Manual) 6 % (3-13) 05/22/20 04:36 Eosinophils % (Manual) 0 % (0-6) 05/22/20 04:36 Basophils % (Manual) 0 % (0-2) 05/22/20 04:36 Abs Neuts (Manual) 6.1 10^3/uL (1.7-8.2) 05/22/20 04:36 Abs Lymphs (Manual) 1.4 10^3/uL (0.5-4.7) 05/22/20 04:36 Abs Monocytes (Manual) 0.5 10^3/uL (0.1-1.4) 05/22/20 04:36 Absolute Eos (Manual) 0.0 10^3/uL (0.0-0.6) 05/22/20 04:36 Abs Basophils (Manual) 0.0 10^3/uL (0.0-0.2) 05/22/20 04:36 Toxic Granulation SLIGHT 05/22/20 04:36 Platelet Comment ADEQUATE 05/22/20 04:36 Poikilocytosis SLIGHT 05/22/20 04:36 Ovalocytes SLIGHT 05/22/20 04:36 Fibrinogen 431 mg/dL (209-497) 05/21/20 23:21 D-Dimer 3.46 ug/mL (0.00-0.50) H 05/23/20 04:14 VBG pH 7.49 (7.30-7.42) H 05/20/20 01:09 VBG pCO2 32.1 mmHg (35-63) L 05/20/20 01:09 VBG HCO3 24.0 mmol/L (20-32) 05/20/20 01:09 VBG Base Excess 1.5 mmol/L 05/20/20 01:09 Sodium 134.2 mmol/L (137-145) L 05/24/20 04:27 Potassium 4.4 mmol/L (3.6-5.0) 05/24/20 04:27 Chloride 101 mmol/L (98-107) 05/24/20 04:27 Carbon Dioxide 22 mmol/L (22-30) 05/24/20 04:27 Anion Gap 11 (5-19) 05/24/20 04:27 BUN 20 mg/dL (7-20) 05/24/20 04:27 Creatinine 0.78 mg/dL (0.52-1.25) 05/24/20 04:27 Est GFR ( Amer) > 60 (>60) 05/24/20 04:27 Est GFR (MDRD) Non-Af > 60 (>60) 05/24/20 04:27 Glucose 132 mg/dL (75-110) H 05/24/20 04:27 Calcium 8.9 mg/dL (8.4-10.2) 05/24/20 04:27 Magnesium 2.2 mg/dL (1.6-2.3) 05/22/20 04:36 Total Bilirubin 0.8 mg/dL (0.2-1.3) 05/24/20 04:27 Direct Bilirubin 0.4 mg/dL (0.0-0.4) 05/24/20 04:27 Neonat Total Bilirubin Not Reportable 05/24/20 04:27 Neonat Direct Bilirubin Not Reportable 05/24/20 04:27 Neonat Indirect Bili Not Reportable 05/24/20 04:27 AST 22 U/L (17-59) 05/24/20 04:27 ALT 36 U/L (<50) 05/24/20 04:27 Alkaline Phosphatase 75 U/L (38-126) 05/24/20 04:27 Troponin I 0.024 ng/mL 05/20/20 17:10 C-Reactive Protein 17.4 mg/L (<10.0) H 05/24/20 04:27 NT-Pro-B Natriuret Pep 67 pg/mL (<125) 05/20/20 01:09 Total Protein 6.2 g/dL (6.3-8.2) L 05/24/20 04:27 Albumin 3.2 g/dL (3.5-5.0) L 05/24/20 04:27 Urine Color YELLOW 05/23/20 08:25 Urine Appearance CLEAR 05/23/20 08:25 Urine pH 6.0 (5.0-9.0) 05/23/20 08:25 Ur Specific [place] 1.016 05/23/20 08:25 Urine Protein NEGATIVE mg/dL (NEGATIVE) 05/23/20 08:25 Urine Glucose (UA) NEGATIVE mg/dL (NEGATIVE) 05/23/20 08:25 Urine Ketones NEGATIVE mg/dL (NEGATIVE) 05/23/20 08:25 Urine Blood NEGATIVE (NEGATIVE) 05/23/20 08:25 Urine Nitrite NEGATIVE (NEGATIVE) 05/23/20 08:25 Urine Bilirubin NEGATIVE (NEGATIVE) 05/23/20 08:25 Urine Urobilinogen NEGATIVE mg/dL (<2.0) 05/23/20 08:25 Ur Leukocyte Esterase NEGATIVE (NEGATIVE) 05/23/20 08:25 Urine WBC (Auto) 0 /HPF 05/23/20 08:25 Urine RBC (Auto) 1 /HPF 05/23/20 08:25 Urine Mucus (Auto) RARE /LPF 05/23/20 08:25 Urine Ascorbic Acid NEGATIVE (NEGATIVE) 05/23/20 08:25 Blood Type A POSITIVE 05/20/20 04:05 Antibody Screen NEGATIVE 05/20/20 04:05 05/20/20 05/20/20 05/20/20 01:09 06:55 17:10 Troponin I 0.025 0.024 0.024 NT-Pro-B Natriuret Pep 67 Impressions: Chest X-Ray 05/19/20 22:54 IMPRESSION: Mild progressive patchy interstitial and alveolar space disease right lung. Chest/Abdomen CTA 05/23/20 00:00 IMPRESSION: 1. Small segmental and sub segmental emboli bilaterally. 2. Diffuse bilateral airspace disease more marked in the lung periphery as discussed above. There is central involvement as well. 3. Finger like mural thrombus in the aortic arch. This appears to be adherent to the ventral aspect of the aortic arch. It arises just distal to the takeoff of the left subclavian artery. Plan Time Spent: Greater than 30 Minutes Stroke Is this a Stroke Patient?: No Acute Heart Failure Is this a Heart Failure Patient?: No
[2020-05-25 12:41] LABS: ABSOLUTE LYMPHOCYTES# (MANUAL) 2.1 10^3/uL (0.5-4.7); ABSOLUTE MONOCYTES # (MANUAL) 0.3 10^3/uL (0.1-1.4); BAND NEUTROPHILS % (MANUAL) 3 % (3-5); BASOPHILS % (MANUAL) 0 % (0-2); EOSINOPHILS % (MANUAL) 0 % (0-6); LYMPHOCYTES % (MANUAL) 19 % (13-45); METAMYELOCYTES % (MANUAL) 2 % (0-1); MONOCYTES % (MANUAL) 3 % (3-13); RBC MORPHOLOGY COMMENT NORMO-CYTIC/CHROMIC; SEGMENTED NEUTROPHILS % (MAN) 73 % (42-78); TOTAL CELLS COUNTED 100
[2020-05-25 12:42] LABS: PLATELET COMMENT ADEQUATE
== END 2020-05-24 13:00 | disposition home or self-care (01) | DRG 175 ==
LOC: ER 21:51 → EH 05-20 02:31 → 3N 05-20 15:30
PROVIDERS: ADMIT Internal Medicine; ATTEND Family Medicine
PROC: XW13325 Transfusion of Convalescent Plasma (Nonautologous) into Peripheral Vein, Percutaneous Approach, New Technology Group 5 (ICD-10-PCS; principal; 2020-05-20)
DX: I26.99 Other pulmonary embolism without acute cor pulmonale (principal); U07.1 COVID-19; J96.01 Acute respiratory failure with hypoxia; I82.4Z2 Acute embolism and thrombosis of unspecified deep veins of left distal lower extremity; I10 Essential (primary) hypertension; E66.9 Obesity, unspecified; R73.03 Prediabetes; M19.90 Unspecified osteoarthritis, unspecified site; R79.89 Other specified abnormal findings of blood chemistry; Z82.49 Family history of ischemic heart disease and other diseases of the circulatory system; Z88.0 Allergy status to penicillin; Z88.2 Allergy status to sulfonamides; Z88.1 Allergy status to other antibiotic agents; Z86.010 Personal history of colon polyps; Z80.8 Family history of malignant neoplasm of other organs or systems; Z68.33 Body mass index [BMI] 33.0-33.9, adult
CPT/HCPCS: 36415; 36430; 71045; 71275; 80048; 80053; 81001; 82803; 83735; 83880; 84484; 85025; 85027; 85379; 85384; 86140; 86850; 86900; 86901; 93005; 93010; 93971; 94640; 94667; 94799; 99285; J1100; J1650; J3490